=== PATIENT | female | born 1940 | race Caucasian/White ===

== ENCOUNTER → 2023-08-15 09:00 | Outpatient (REF) | payer OTHER, SELFPAY ==
[2023-08-15 10:37] LABS: ALT (SGPT) 18 U/L (0-35); AST (SGOT) 19 U/L (14-36); Albumin 4.3 g/dl (3.5-5.0); Alkaline Phosphatase 68 U/L (38-126); Blood Urea Nitrogen 18 mg/dl (7-17); Carbon Dioxide 30 mmol/L (22-30); Chloride 97 mmol/L (98-107); Glucose 146 mg/dl (70-99); HDL Cholesterol 50 mg/dl; LDL Cholesterol, Calculated 58 mg/dl; Sodium 136 mmol/L (135-145); Total Bilirubin 0.4 mg/dl (0.2-1.3); Total Cholesterol 131 mg/dl (50-199); Total Protein 6.8 g/dl (6.3-8.2); Triglyceride 117 mg/dl (10-149); Very Low Density Lipoprotein 23 mg/dl (0-30); eGFR > 60.00
[2023-08-15 11:04] LABS: Microalbumin, Random Urine 6.2 mg/dl (0.6-1.7)
== END ==
LOC: REG 09:00
PROVIDERS: ATTENDING PHYSICIAN Family Medicine
DX: E78.2 Mixed hyperlipidemia (principal); E11.40 Type 2 diabetes mellitus with diabetic neuropathy, unspecified; Z79.899 Other long term (current) drug therapy
CPT/HCPCS: 36415; 80053; 80061; 82043; 82570; 83036; 84443

== ENCOUNTER → 2024-02-06 08:46 | Outpatient (REF) | payer OTHER, SELFPAY ==
[2024-02-06 09:32] LABS: % Basophils 1.4 % (0-2); % Eosinophils 1.7 % (0-6); % Immature Granulocytes 0.3 % (0-0.5); % Lymphocytes 22.4 % (20.5-51.1); % Monocytes 8.7 % (1.7-9.3); % Neutrophils 65.5 % (42.2-75.2); Absolute Basophils 0.1 10^3/uL (0-0.2); Absolute Eosinophils 0.1 10^3/uL (0-0.7); Absolute Lymphocytes 1.3 10^3/uL (1.2-3.4); Absolute Monocytes 0.5 10^3/uL (0.1-0.6); Absolute Neutrophils 3.8 10^3/uL (1.4-6.5); Hematocrit 40.8 % (37.0-47.0); Hemoglobin 13.6 g/dL (12.0-16.0); Mean Corp Hgb Conc. 33.3 g/dL (33.0-37.0); Mean Corpuscular Hgb 29.8 pg (27.0-31.0); Mean Corpuscular Volume 89.5 fL (81.0-99.0); Nucleated Red Blood Cells % 0 %; Platelet Count 239 10^3/uL (130-400); Red Blood Cell Count 4.56 10^6/uL (4.20-5.40); Red Cell Dist. Width 12.4 % (11.5-14.5); White Blood Cell Count 5.8 10^3/uL (4.8-10.8)
[2024-02-06 10:03] LABS: Urine Albumin Trace (Neg - Trace); Urine Bilirubin Negative (Negative); Urine Character Clear (Clear); Urine Color Yellow; Urine Glucose Negative (Negative); Urine Ketone Negative (Negative); Urine Leukocyte Negative (Negative); Urine Nitrite Negative (Negative); Urine Occult Blood Negative (Negative); Urine Specific Gravity 1.015 (<1.030); Urine Urobilinogen Negative (Neg - 1+)
[2024-02-06 10:14] LABS: ALT (SGPT) 16 U/L (0-35); AST (SGOT) 22 U/L (14-36); Albumin 4.6 g/dl (3.5-5.0); Alkaline Phosphatase 69 U/L (38-126); Blood Urea Nitrogen 15 mg/dl (7-17); Calcium 10.1 mg/dl (8.4-10.2); Carbon Dioxide 28 mmol/L (22-30); Chloride 95 mmol/L (98-107); Glucose 147 mg/dl (70-99); HDL Cholesterol 65 mg/dl; LDL Cholesterol, Calculated 85 mg/dl; Potassium 4.8 mmol/L (3.5-5.1); Sodium 136 mmol/L (135-145); Total Bilirubin 0.6 mg/dl (0.2-1.3); Total Cholesterol 181 mg/dl (50-199); Total Protein 6.8 g/dl (6.3-8.2); Triglyceride 156 mg/dl (10-149); Very Low Density Lipoprotein 31 mg/dl (0-30); eGFR > 60.00
[2024-02-06 10:30] LABS: Glycohemoglobin (HgbA1c) 6.9 % (4.0-5.6)
== END ==
LOC: REG 08:46
PROVIDERS: ATTENDING PHYSICIAN Family Medicine
DX: E11.40 Type 2 diabetes mellitus with diabetic neuropathy, unspecified (principal); E78.2 Mixed hyperlipidemia; R53.83 Other fatigue; R35.0 Frequency of micturition
CPT/HCPCS: 36415; 80053; 80061; 81003; 83036; 85025

== ENCOUNTER → 2024-07-08 12:58 | Outpatient (REF) | payer OTHER, SELFPAY | LOC: RAD 12:58 | PROVIDERS: ATTENDING PHYSICIAN Nurse Practitioner Adult Health | DX: M54.42 Lumbago with sciatica, left side (principal); M53.3 Sacrococcygeal disorders, not elsewhere classified; W19.XXXA Unspecified fall, initial encounter | CPT/HCPCS: 72110; 72220 ==

== ENCOUNTER → 2024-07-27 09:13 | Outpatient (REF) | payer OTHER, SELFPAY ==
[2024-07-27 11:36] LABS: TSH Reflex To Free T4 3.84 uIU/ml (0.47-4.68)
== END ==
LOC: REG 09:13
PROVIDERS: ATTENDING PHYSICIAN Family Medicine
DX: Z13.29 Encounter for screening for other suspected endocrine disorder (principal)
CPT/HCPCS: 36415; 84443

== ENCOUNTER 2024-08-15 13:45 | Inpatient (IN) | payer OTHER, SELFPAY ==
[2024-08-14] VITALS (12 sets, daily range): BP systolic 96–211; BP diastolic 53–90; BMI 29.2; BMI 28.8
--- NOTE | 2024-08-14 16:24 | ED.GENMED ---
History of Present Illness
General
Chief Complaint: Weakness
Source: patient
Exam Limitations: none
Time Seen by Provider: 08/14/24 16:11
History of Present Illness
History of Present Illness:
83yoF with a history of hypertension, hyperlipidemia, and type 2 diabetes presenting for evaluation of speech disturbance and weakness. Patient has been feeling weird and dizzy for the past several days. She was shopping at [employer] about an
hour ago when she started to feel weird again. She walked out of the store and couldn't read her license plate. She states she was unable to read the letters and had trouble getting out her words. Her right arm felt numb and weak. She drove
herself to the urgent care where EMS was called. She is currently feeling much better and she denies any current dizziness, visual changes, weakness, or speech disturbance. She does state that she still feels unsteady. She takes a baby aspirin
daily. No prior history of CVA.
Past History
Past History
ED Past Medical History: Cancer (Breast), HTN, Hypercholesterolemia, NIDDM, Other (Neuropathy, Back pain, Shingles) and Other
ED Past Surgical History: Appendectomy, Orthopedic (Right thumb joint repair), Tonsilectomy and Other (Cataract surgery, Lumpectomy)
Social History
Tobacco: Non-smoker
Alcohol: None
Personal:
Living: alone
Employment: Retired
Family History
Family History: Negative Diabetes, Hypertension or CAD
Phy Exam
General Physical Exam
General Presentation: well appearing and no apparent distress
General age: appears stated age
General Skin: warm and dry
General Habitus: normal
General Mental: alert
ENT Exam
ENT Exam: normocephalic
Eye Exam
Eye Exam: PERRL, EOMI, conjunctiva normal and visual hewitt normal
Pulmonary Exam
Pulmonary Exam: no respiratory distress
Neurological Exam
Neurological Exam: alert, CN II-XII intact, no motor deficits, speech normal and other (CN 2-12 intact. PERRL. EOMs intact. Able to name objects and read sentences fluently on NIHSS cards. Negative drift x4. Sensation intact in all extremities.
Normal finger to nose and heel to tejada bilaterally.)
NIH Stroke Score
Level of Consciousness: 0 - Alert
LOC questions: 0-Answers both correctly
LOC Commands: 0-Performs both correctly
Best Gaze: 0-Normal
Visual Hewitt: 0=Normal, no visual loss
Facial palsy: 0=Normal, symmetrical
Motor - Right Arm: 0=No drift 10 seconds
Motor - Left Arm: 0=No drift 10 seconds
Motor - Right Le-No drift 5 seconds
Motor - Left Le-No drift 5 seconds
Limb Ataxia: 0-Absent
Sensation: 0-Normal
Best Language: 0-No aphasia
Dysarthria: 0-Normal
Extinction and Inattention: 0-No abnormality
Total Score:: 0
[place] Coma Scale
Eye Opening: Spontaneous
Verbal Response: Oriented
Motor Response: Obeys Commands
GCS Total Score: 15
Skin Exam
Skin Exam: normal color and warm/dry
Psychiatric Exam
Psychiatric Exam: normal mood/affect
Course
Orders/Labs/Results
Orders:
Orders
08/14/24 Breakfast
Regular
At Your Request: Limited Participation
08/14/24 16:23
CT Head W/o Iv Contrast Urgent
Comment:
Reason For Exam: transient R sided weakness, speech disturbance
Cardiac Monitoring- Treatment ONCE
08/14/24 16:25
Complete Blood Count/With Diff Urgent
Comprehensive Metabolic Panel Urgent
Troponin I Urgent
08/14/24 16:27
Electrocardiogram (*1) Urgent
Reason for Study: TIA/Stroke
EKG- Treatment ONCE
08/14/24 19:14
Aspirin Chewable [Low Strength Aspirin] 324 mg PO NOW STA
08/14/24 20:07
Admit/Transfer Patient As Directed
Co-Sign Provider:
Level of Care: Observation services
Assign to:: Telemetry
Physician / Group: Ed
Diagnosis: CVA / TIA
Reason for Telemetry: CVA/TIA
Date to Stop Telemetry: 08/17/24
Time to Stop Telemetry: 11:00
08/14/24 20:08
PRN Pain Medication Management As Directed
May give lesser potent ordered pain med per pt: Yes
preference::
Protocol:: Medication orders for pain may be administered in a
manner that supports deferring to patient preference
when the pt is:
- Requesting an ordered lesser potent pain medication.
Least to most potent pain medications are defined
as: acetaminophen < NSAID < tramadol < opioids
(morphine, oxycodone, hydromorphone).
- Requesting a lesser dose of the same medication IF
ORDERED.
- Requesting a less intrusive route of administration
if both routes are prescribed by the provider (PO <
IV).
08/14/24 20:09
Code Status As Directed
Resuscitation Status: Full Code
08/14/24 21:29
Acetaminophen [Tylenol] 650 mg PO Q4HPRN PRN
HydrALAZINE [Apresoline] 5 mg IV Q6HPRN PRN
08/14/24 21:29
Glycohemoglobin (HgbA1c) Routine
Activity As Directed
Activity Level: Ambulate
With Assistance
EKG with chest pain [ECG as needed] As Directed
ECG as needed for:: Chest Pain
I/O [Intake/ Output] As Directed
Frequency: Per unit guidelines
Neurological Checks As Directed
Frequency: q4h
Orthostatic Vital Signs As Directed
Orthostatic VS Frequency: BID
Pneumatic Compression Sleeves As Directed
Type: Knee high
Vital Signs As Directed
Frequency: Per unit guidelines
Weight As Directed
Frequency: Daily
Oxygen Therapy [O2 Therapy] [RESP] Routine
Titrate/Wean O2 to maintain O2 sat greater than (%): 94
Ot Eval And Treat Routine
PT Consult [Pt Eval And Treat] Routine
Activity Level: Ambulate
With Assistance
Speech Therapy Eval & Treat Routine
DX Deep Vein Thrombosis Video Routine
08/15/24 06:00
Basic Metabolic Panel IN AM
Cardiovascular Evaluation IN AM
Complete Blood Count/No Diff IN AM
MR Brain Without Contrast IN AM
Comment:
Reason For Exam: CVA / TIA
Recent pill cam endoscopy?: No
08/15/24 08:00
Aspirin Low Dose EC [Aspir Low (Enteric Coated)] 81 mg PO DAILY
Clopidogrel Bisulfate [Plavix] 75 mg PO DAILY
Ezetimibe [Zetia] 10 mg PO DAILY
Metoprolol [Lopressor] 25 mg PO BID
Pantoprazole [Protonix] 40 mg PO DAILY
08/15/24 18:00
Pravastatin Sodium [Pravachol] 40 mg PO QPM
08/17/24 11:00
DC Protocol for Telemetry ONCE
Abnormal Lab Results
08/14/24
16:25
Sodium 132 L mmol/L
(135-145)
Glucose 118 H mg/dl
(70-99)
08/14/24 16:25
08/14/24 16:25
Vital Signs
Initial and Last Documented VS:
Initial Vital Signs
Temp Pulse Resp BP Pulse Ox
97.7 F 70 18 192/90 100
08/14/24 16:05 08/14/24 16:05 08/14/24 16:05 08/14/24 16:05 08/14/24 16:05
Last Documented Vital Signs
Temp Pulse Resp BP Pulse Ox
97.7 F 67 19 183/66 99
08/14/24 16:05 08/14/24 19:50 08/14/24 16:15 08/14/24 19:30 08/14/24 19:50
MDM/Problems Addressed
Differential Diagnosis Includes:
83yoF here after an episode of R arm weakness and speech disturbance. Symptoms mostly resolved on arrival but she still does not feel quite right. She is hypertensive on arrival with blood pressure of 192/90. She is well-appearing in no distress.
No focal neurologic deficits noted. NIHSS 0. Differential diagnosis includes but is not limited to: TIA, CVA, complex migraine
Initial ED plan: Check cardiac labs, EKG, and CT head. Patient is not a TNK candidate given resolution of symptoms.
*Critical Care Note
Total Time (30-74mins, 75-104mins- exclusive of procedures): Not Applicable
Update Note
Update Note:
Labs overall unremarkable including a glucose of 118. CT head negative for acute findings. No recurrent right arm weakness on reassessment. She does state that her speech still feel slightly off although no obvious dysarthria or aphasia noted.
Patient able to ambulate independently but does report feeling somewhat unsteady with position changes. Will admit for further evaluation.
ED Attending Note
-
Portions of this chart may have been created with voice recognition software.� Occasional wrong word or��sound alike� substitutions may have occurred due to the inherent limitations of voice recognition software.
Discharge Plan
Departure
Patient Disposition: Admit
Date of Disposition: 08/14/24
Time of Disposition: 19:17
Presentation/result/management discussed w/ accepting MD/DO: Hospitalist
Discharge Problem:
TIA (transient ischemic attack)
Interventions
Interventions:
*Risk Screen - Suicide Last Done: 08/14/24 16:05
*General Assessment Last Done: 08/14/24 16:05
*Neglect/Abuse Screening Last Done: 08/14/24 16:05
*ED- Fall Risk Assessment Last Done: 08/14/24 16:05
*ED COVID-19 Vaccine History Last Done: 08/14/24 16:05
ED- Cardiac Assessment Last Done: 08/14/24 16:05
ED- Neurological Assessment Last Done: 08/14/24 19:40
ED- Pulmonary Assessment Last Done: 08/14/24 16:05
[2024-08-14 16:37] LABS: % Basophils 0.8 % (0-2); % Eosinophils 3.8 % (0-6); % Immature Granulocytes 0.3 % (0-0.5); % Monocytes 7.1 % (1.7-9.3); Absolute Basophils 0.1 10^3/uL (0-0.2); Absolute Eosinophils 0.2 10^3/uL (0-0.7); Absolute Lymphocytes 1.6 10^3/uL (1.2-3.4); Absolute Monocytes 0.5 10^3/uL (0.1-0.6); Absolute Neutrophils 3.9 10^3/uL (1.4-6.5); Hematocrit 38.7 % (37.0-47.0); Hemoglobin 13.4 g/dL (12.0-16.0); Mean Corp Hgb Conc. 34.6 g/dL (33.0-37.0); Mean Corpuscular Hgb 30.6 pg (27.0-31.0); Mean Corpuscular Volume 88.4 fL (81.0-99.0); Nucleated Red Blood Cells % 0 %; Platelet Count 215 10^3/uL (130-400); Red Blood Cell Count 4.38 10^6/uL (4.20-5.40); Red Cell Dist. Width 12.2 % (11.5-14.5); White Blood Cell Count 6.3 10^3/uL (4.8-10.8)
[2024-08-14 16:49] LABS: ALT (SGPT) 17 U/L (0-35); AST (SGOT) 24 U/L (14-36); Albumin 4.6 g/dl (3.5-5.0); Alkaline Phosphatase 62 U/L (38-126); Blood Urea Nitrogen 17 mg/dl (7-17); Calcium 9.6 mg/dl (8.4-10.2); Carbon Dioxide 25 mmol/L (22-30); Chloride 98 mmol/L (98-107); Estimated Creatinine Clearance 60 ml/min; Glucose 118 mg/dl (70-99); Potassium 4.6 mmol/L (3.5-5.1); Sodium 132 mmol/L (135-145); Total Bilirubin 0.7 mg/dl (0.2-1.3); Total Protein 6.9 g/dl (6.3-8.2); eGFR > 60.00
[2024-08-14 16:56] LABS: Troponin I < 0.012 ng/ml
[2024-08-14] MEDS: LOW STRENGTH ASPIRIN 324 MG PO (20:05)
--- NOTE | 2024-08-14 20:12 | HPS.HSE ---
Family Physician
-
Family Physician: Scar Rodriguez Jr.
Chief Complaint
-
Dizzy, Speech Difficulty
History of Present Illness
Patient is an 83y F with PMH significant for ASCVD, hypertension and diet-controlled DM-II who presents to ED complaining of feeling 'strange'. Patient states that she has been having some issues with poor balance for several months. She states
that she goes out to the store frequently just to walk around and work on her balance. She says that she has felt 'dizzy' for the past few days. Today she felt 'strange' this AM - though she cannot further describe these symptoms / sensations.
She went to the store to walk around as per usual and noted that she was more unsteady than usual. She noted dizziness, vision changes with described 'clouds' in her vision. She had difficulty reading print and could not pronounce / recognize
words even when seeing them clearly. She also noted difficulty speaking / word finding difficulty. She also states that her R hand / upper extremity felt numb and tingly.
She did not fall. No injury or trauma. Patient presented to an Urgent Care for evaluation and was transported to the ED via EMS.
In the ED, she does not feel back to her baseline - though she is able to speak without as much difficulty. The RUE symptoms have fully resolved.
Patient denies any prior h/o stroke.
She takes few Rx medications - but states that she takes numerous 'natural' remedies.
Medical History
Past Medical History
Past Medical History: Reports Other
Additional Past Medical History:
ASCVD
Hypertension
Diet-Controlled DM-II
Breast Cancer
GERD
Past Surgical History: Reports Other
Additional Past Surgical History:
Right Breast Biopsy / Lumpectomy
Appendectomy
T&A
PTCA (no stent)
Cataracts
Right Rotator Cuff Surgery
Social History
Tobacco: Non-smoker
Alcohol: None
Drug: None
Family History
Family History: Other (Mother: Cancer)
Allergies / Home Medications
Allergies reflects when Allergies were last updated in [facility].
Home Medications with original date entered in [facility]
Allergy/Medication List:
Allergies
Allergy/AdvReac Type Severity Reaction Status Date / Time
No Known Allergies Allergy Verified 11/24/19 18:53
Home Medications
aspirin 81 mg tablet,delayed release 81 mg PO DAILY 04/04/11
metoprolol tartrate 25 mg tablet 25 mg PO DAILY 12/24/12
sucralfate 1 gram tablet (Carafate) 1 g PO ACHS Gastrointestinal issue #40 tabs 05/23/23
ezetimibe 10 mg tablet (Zetia) 10 mg PO DAILY 08/14/24
pantoprazole 40 mg tablet,delayed release (Protonix) 40 mg PO BID Gastrointestinal issue 08/14/24
pravastatin 40 mg tablet 40 mg PO MOWEFR 08/14/24
Review of Systems
-
History Source: Patient
A 12 point ROS was completed and negative except as noted: Yes
Constitutional: Reports Fatigue; Denies Fever or Chills
EENT: Denies Sore Throat
Respiratory: Denies Cough or Trouble Breathing
Cardiac: Denies Chest Pain or Palpitations
Abdomen/GI: Denies Abdominal Pain, Nausea, Vomiting or Diarrhea
: Denies Dysuria, Frequency or Flank Pain
Musculoskeletal: Denies Joint Pain or Edema
Neurological: Reports Dizzy, Numbness and Other (Ataxia); Denies Headache
Psych: Denies Depression or Anxiety
Physical Exam
Vital Signs
Vital Signs
Temp Pulse Resp BP Pulse Ox
97.7 F 67 19 183/66 99
08/14/24 16:05 08/14/24 19:50 08/14/24 16:15 08/14/24 19:30 08/14/24 19:50
Physical Exam
General: Other (83y F in no acute distress.)
HEENT: Moist mucous membranes and PERRLA
Respiratory: Clear; No Wheezes, Rales or Rhonchi
Cardiac: S1/S2 and Regular Rhythm; No Murmur
GI: Soft, Non Tender, Non Distended and Normal Bowel Sounds
Musculoskeletal: No Clubbing, No Cyanosis and No Edema
Neuro: AO x 3, Nonfocal/grossly intact and Other (No focal weakness or sensory deficits. Able to read / follow commands / name objects / repeat sentences without difficulty. No evident ataxia.)
Laboratory Results
-
08/14/24 16:25
08/14/24 16:25
Laboratory Results
Total Bilirubin 0.7 mg/dl (0.2-1.3) 08/14/24 16:25
AST 24 U/L (14-36) 08/14/24 16:25
ALT 17 U/L (0-35) 08/14/24 16:25
Alkaline Phosphatase 62 U/L (38-126) 08/14/24 16:25
Troponin I < 0.012 ng/ml 08/14/24 16:25
Impression/Plan
-
A/P: Patient is an 83y F with PMH significant for hypertension, DM-II and ASCVD who presents to ED for evaluation of ataxia, vision changes and speech / reading difficulty.
CVA / TIA
ASCVD
- Observe overnight for further evaluation and treatment.
- Patient does not feel at baseline - but no significant deficits noted on exam at present.
- BP significantly elevated in the ED - question compliance with prescribed BP medications.
- Follow for serial Neuro changes.
- MRI in AM.
- Check lipid pane, A1C, etc.
- DAPT for now.
- Neuro evaluation in the AM.
- Allow permissive hypertension overnight - IV hydralazine if needed for SBP > 200.
Hypertension
- As noted above. Poorly controlled.
- Continue / resume usual home meds.
- Change metoprolol tartrate to appropriate BID dosing.
- Adjust regimen as needed for improved BP control.
Diet-Controlled DM-II
- Stable. Patient takes a 'natural supplement' for DM - but cannot recall the name.
- Check A1C.
GERD
- Stable. Hold Carafate. Change PPI to once daily.
DVT Prophylaxis: SCDs
Code Status: Full
[2024-08-14] MEDS: APRESOLINE 5 MG IV (22:19)
[2024-08-15] VITALS (7 sets, daily range): BP systolic 103–159; BP diastolic 45–72; PULSE 66–72; O2SAT 97–98; BMI 28.6
[2024-08-15 06:06] LABS: Hematocrit 36.7 % (37.0-47.0); Mean Corp Hgb Conc. 35.4 g/dL (33.0-37.0); Mean Corpuscular Hgb 31.5 pg (27.0-31.0); Mean Corpuscular Volume 88.9 fL (81.0-99.0); Platelet Count 216 10^3/uL (130-400); Red Blood Cell Count 4.13 10^6/uL (4.20-5.40); Red Cell Dist. Width 12.2 % (11.5-14.5); White Blood Cell Count 6.3 10^3/uL (4.8-10.8)
[2024-08-15 06:34] LABS: Blood Urea Nitrogen 15 mg/dl (7-17); Calcium 9.4 mg/dl (8.4-10.2); Carbon Dioxide 25 mmol/L (22-30); Chloride 102 mmol/L (98-107); Estimated Creatinine Clearance 59 ml/min; Glucose 104 mg/dl (70-99); HDL Cholesterol 42 mg/dl; LDL Cholesterol, Calculated 81 mg/dl; Sodium 134 mmol/L (135-145); Total Cholesterol 170 mg/dl (50-199); Triglyceride 237 mg/dl (10-149); Very Low Density Lipoprotein 47 mg/dl (0-30); eGFR > 60.00
--- NOTE | 2024-08-15 06:41 | W.PN.HOSP.TC ---
Today's Communication/Plan
-
see s/p
Assessment / Plan
Assessment / Plan
Physical Exam
General: no acute appears comfortable at this time
HEENT: Moist mucous membranes and PERRLA EOMI horizontal nystagmus
Respiratory: Clear; No Wheezes, Rales or Rhonchi
Cardiac: S1/S2 and Regular Rhythm; No Murmur
GI: Soft, Non Tender, Non Distended and Normal Bowel Sounds
Musculoskeletal: No Clubbing, No Cyanosis and No Edema
Neuro: AO x 3, Nonfocal/grossly intact, No focal weakness or sensory deficits.
A/P: Patient is an 83y F with PMH significant for hypertension, DM-II and ASCVD who presents to ED for evaluation of ataxia, vision changes and speech / reading difficulty.
TIA, CVA ruled out
ASCVD
- MRI Appreciated no acute abn's
- Neuro eval appreciated outpt neuropyschological testing recommended
- DAPT started empirically, discontinue plavix w/ CVA r/o, cont home ASA
- Lipid panel appreciated Hyperlipidemia cont home statin ezetimibe, counseled low cholesterol diet
- Speech eval appreciated appropriate for regular diet, concern for esophageal dysphagia, consider GI eval outpt vs inpt
- PT/OT appreciated home services
Hypertension
- Continue home metoprolol tartrate increased from daily to BID
- Adjust regimen as needed for improved BP control. Adjustments limited by severe orthostatic hypotension as below
Severe Symptomatic Orthostatic Hypotension
-Thigh TEDS started, consider Abd binder if not significantly improved
Diet-Controlled DM-II
- Diet controlled
- A1c appreciated 6.8 at goal for DM mgmt A1c<7
-No need for routine FS at this time
GERD
- Stable. Hold home Carafate. Changed home PPI to once daily.
DVT Prophylaxis: SCDs
Code Status: Full
I spent a total of 40 minutes with the patient or on the floor. More than 50% of this time involved counseling and coordination of care.
Anticipated Discharge: 24 - 48 hours
Subjective/Interval History
-
Date of Service: August 15, 2024
no acute distress resting comfortably in bed. reports overall improvement in symptoms. Though dizziness persists on sitting up/standing.
Objective Data
-
Labs:
Laboratory Results
08/15/24
04:45
WBC 6.3
Hgb 13.0
Hct 36.7 L
Plt Count 216
Sodium 134 L
Potassium 4.0
Chloride 102
Carbon Dioxide 25
BUN 15
Creatinine 0.7
Glucose 104 H
Calcium 9.4
Vital Signs:
Vital Signs
Temp Pulse Resp BP Pulse Ox
97.5 F 62 18 118/45 97
08/15/24 03:30 08/15/24 03:30 08/15/24 03:30 08/15/24 03:30 08/15/24 03:30
I&O
08/13/24 08/14/24 08/15/24
06:59 06:59 06:59
Intake Total 240 / 240
Balance 240 / 240
--- NOTE | 2024-08-15 08:21 | CON.NEURO ---
Neuro Assessment/Plan
Assessment
Abrupt onset of mental status change with sense of ataxia across last month, with patient having questionable history of foot pains.
Differential diagnosis includes progressive degenerative neurological disorder of unclear etiology, subacute stroke
Plan
check orthostatics
check MRI of brain
consider MRA or CTA of neurovascular system if evidence of prior ischemic injury
continue aspirin
Check blood work for potential metabolic abnormalities producing symptomatology
Rehabilitation evaluation and treatment
Outpatient neuropsychological testing
Will follow pending results
Consultation
Order
Date of Consultation: 08/15/24
Requesting Provider: Hospitalists
Reason for Consult: Dizziness
Subjective/Objective
Subjective Data
Date of Service: August 15, 2024
Right-handed
Began having difficulty with walking straight in 04/2024. Did fall on the ice at that time.
Began 1 month ago (06/2024) with recall and memory.
Two days ago had difficulty with reading especially around particular words, then difficulty with speech. Patient had sensation change and weakness in the right arm one day ago unclear time of onset which resolved after 1 hour. No leg issues. No
contralateral weakness.
Balance also became poor. Patient presented to [facility] who recommended patient present to this hospital's ED.
Did have difficulty with driving.
No prior episodes similar. No known modifying factors.
Objective Data
Vital Signs
Temp Pulse Resp BP Pulse Ox
36.4 C 62 18 118/45 97
08/15/24 03:30 08/15/24 03:30 08/15/24 03:30 08/15/24 03:30 08/15/24 03:30
Lab Results
08/15/24 04:45
08/15/24 04:45
Sodium 134 mmol/L (135-145) L 08/15/24 04:45
Potassium 4.0 mmol/L (3.5-5.1) 08/15/24 04:45
BUN 15 mg/dl (7-17) 08/15/24 04:45
Glucose 104 mg/dl (70-99) H 08/15/24 04:45
Calcium 9.4 mg/dl (8.4-10.2) 08/15/24 04:45
LDL Cholesterol, Calc 81 mg/dl 08/15/24 04:45
Patient Allergies
No Known Allergies Allergy (Verified 11/24/19 18:53)
Review of Systems
-
History Source: Patient
All other systems: Reviewed and negative
Constitutional: Weakness
EENT: Swallowing Difficulty (started 2 days ago); Negative Blurry Vision or Decreased Vision
Respiratory: Negative Trouble Breathing
Cardiac: Negative Chest Pain
Abdomen/GI: Negative Incontinence of Stool
Genitourinary: Negative Incontinence
Musculoskeletal: Neck Pain; Negative Back Pain
Neuro: Dizzy and Other (imbalance, thinking clarity); Negative Headache
Physical Exam
-
General: No Apparent Distress and Appears Stated Age
Eyes: OU Absent Papilledema, Round OU, [place] Conjunctivae and No Ptosis
HEENT: Anicteric and Moist Mucous Membranes
Neck: Full Range of Motion
Respiratory: No Dyspnea
Cardiac: No JVD
GI: Non-distended
Skin: Unremarkable
Extremities: No Clubbing, No Cyanosis and No Edema
Psych: Intact Judgement/Insight
Extended Neurological Exam
Mood & Affect: Negative Affect Unremarkable (somatic)
Attention Span & Concentration: Awake, Alert, Interactive and No Difficulty with 2 Step Request
Memory: Unremarkable
Tremor: Hand Tremor Absent and Head Tremor Absent
Speech: Quality Unremarkable and Quantity Unremarkable
Cranial Nerve II: Left Eye: Pupillary Reactivity Unremarkable, Pupillary Size Unremarkable and Visual Torres Intact
Cranial Nerve II: Right Eye: Pupillary Reactivity Unremarkable, Pupillary Size Unremarkable and Visual Torres Intact
Cranial Nerves III, IV, : Extraocular Movement: Extraocular Movement Full in all Directions
Cranial Nerve VII: Facial Symmetry: Normal Facial Symmetry
Cranial Nerve VIII: Hearing: Unremarkable Hearing to Normal Conversational Volume
Cranial Nerves IX, X: Palate Movement: Palate Elevation Symmetric
Cranial Nerve XI: Shoulder Shrug: Unremarkable
Cranial Nerve XII: Tongue Protusion: Midline
Muscle Strength, Overall: Full Throughout
Muscle Bulk & Tone: Bulk Unremarkable and Tone Unremarkable
Pronator Drift: No Drift in Upper Extremities
Deep Tendon Reflexes: Unremarkable Throughout
Touch Sensation: Unremarkable
Coordination: [id number] Testing Unremarkable
Babinski Sign: Absent Bilaterally
Gait & Station: Up from Seated Without Problem
Data Reviewed
-
CT Head: Report Reviewed
MRI Head: Report Reviewed and Image Reviewed
Labs: Report Reviewed
Lipid Profile: Report Reviewed
Reviewed with: Nurse and Patient
Old Records: Summarized
Medications
-
Active Medications
Generic Name Dose Route Start Last Admin
Trade Name Freq PRN Reason Stop Dose Admin
Acetaminophen 650 mg 08/14/24 21:29
Acetaminophen 325 Mg Tablet PO 09/11/24 21:28
Q4HPRN PRN
Mild Pain / Temp > 101
Aspirin 81 mg 08/15/24 08:00
Aspirin 81 Mg (Enteric Coated) Tablet PO 09/12/24 07:59
DAILY DEDE
Clopidogrel Bisulfate 75 mg 08/15/24 08:00
Clopidogrel 75 Mg Tablet PO 09/12/24 07:59
DAILY DEDE
Ezetimibe 10 mg 08/15/24 08:00
Ezetimibe (Zetia) 10 Mg Tablet PO 09/12/24 07:59
DAILY DEDE
Hydralazine HCl 5 mg 08/14/24 21:29 08/14/24 22:19
Hydralazine 20 Mg/Ml Vial IV 09/11/24 21:28 5 mg
Q6HPRN PRN Administration
SBP > 200
Metoprolol Tartrate 25 mg 08/15/24 08:00
Metoprolol 25 Mg Regular Release Tablet PO 09/12/24 07:59
BID DEDE
Pantoprazole Sodium 40 mg 08/15/24 08:00
Pantoprazole 40 Mg Delayed Release Tablet PO 09/12/24 07:59
DAILY DEDE
Pravastatin Sodium 40 mg 08/15/24 18:00
Pravastatin 40 Mg Tablet PO 09/12/24 17:59
QPM DEDE
Home Medications
�Medication �Instructions �Recorded
aspirin 81 mg tablet,delayed 81 mg PO DAILY Blood Clot 04/04/11
release Prevention/Tx
metoprolol tartrate 25 mg tablet 25 mg PO DAILY Blood Pressure 12/24/12
sucralfate 1 gram tablet (Carafate) 1 g PO ACHS Gastrointestinal issue 05/23/23
#40 tabs
ezetimibe 10 mg tablet (Zetia) 10 mg PO DAILY High Cholesterol 08/14/24
pantoprazole 40 mg tablet,delayed 40 mg PO BID Gastrointestinal issue 08/14/24
release (Protonix)
pravastatin 40 mg tablet 40 mg PO MOWEFR High Cholesterol 08/14/24
Past History
Past History
ED Past Medical History: Cancer (Breast), GERD, HTN, Hypercholesterolemia, NIDDM and Other (Neuropathy, Back pain, Shingles)
ED Past Surgical History: Appendectomy, Orthopedic (Right thumb joint repair), Tonsilectomy and Other (Cataract surgery, Lumpectomy)
Social History
Tobacco: Non-smoker
Alcohol: None
Personal:
Living: alone
Employment: Retired
Family History
Family History: Negative Diabetes, Hypertension or CAD
[2024-08-15] MEDS: LOPRESSOR 25 MG PO ×2 (08:52→20:10)
[2024-08-15] MEDS: ZETIA 10 MG PO (08:52)
[2024-08-15] MEDS: ASPIR LOW (ENTERIC COATED) 81 MG PO (08:52)
[2024-08-15] MEDS: PLAVIX 75 MG PO (08:52)
[2024-08-15] MEDS: PROTONIX 40 MG PO (08:53)
--- NOTE | 2024-08-15 09:32 | PTOTSP ---
SPEECH THERAPY SPEECH/LANGUAGE/SWALLOW EVALUATION:
Patient exhibits grossly functional oropharyngeal swallow at this time. Patient with history of suspected esophageal dysphagia given complaints of globus sensation and sternal retention, and retained contrast noted during prior VSE 06/12/2023.
Recommend continue baseline diet as recommended from VSE (Regular texture solids, thin liquids; Avoid overly dry/dense foods). Medications whole with liquid as best tolerated.
Aspiration and Reflux Precautions: maintain 90 degrees upright sitting position when
eating or drinking, use dry swallow(s) after each regular swallow, small bites
of food, eat slowly and chew food thoroughly, alternate sip of liquid after
every few bites of food to assist with esophageal clearance, eat smaller, more
frequent meals, rest breaks during meals (and stand up as needed), moisten
foods with gravies/sauces, jellies/jams, etc. and remain upright for at least
30 minutes after meals.
Patient remains at risk for oropharyngeal dysphagia/aspiration given possible acute CVA. Recommend ST to follow, assess diet tolerance, determine indication for repeat instrumental assessment of swallowing, and provide diagnostic swallow therapy as
appropriate. Recommend GI consult to further assess esophageal dysphagia, as patient denied receiving GI services despite recommendation for follow up after VSE.
Patient exhibits mild expressive/receptive language impairments and mild-moderate cognitive communication impairments. Deficits noted in the following areas: STM, Processing speed, Attention, Word finding, Abstraction, Executive functioning,
orientation. MOCA version 8.1 was administered. Patient achieved a score of 17/30, indicating below normal level (greater than or equal to 26/30). Subscores as follows: Visuospatial/Executive functionin/5. Namin/3. Attention: 4/6. Language:
2/3. Abstraction: 1/2. Delayed Recall: 0/5. Orientation: 4/6. Patient endorsed mild STM/word finding impairments at baseline. Recommend ST services at the acute care level and continued upon discharge pending MRI results.
RECOMMEND:
1) Regular texture solids, thin liquids; Avoid overly dry/dense foods
2) Medications whole with liquid as best tolerated
3) Aspiration and Reflux Precautions: maintain 90 degrees upright sitting position when
eating or drinking, use dry swallow(s) after each regular swallow, small bites
of food, eat slowly and chew food thoroughly, alternate sip of liquid after
every few bites of food to assist with esophageal clearance, eat smaller, more
frequent meals, rest breaks during meals (and stand up as needed), moisten
foods with gravies/sauces, jellies/jams, etc. and remain upright for at least
30 minutes after meals
4) Oral care 3x/day
5) Consider GI consult to assess esophageal dysphagia
6) ST to follow at the acute care level for swallow and language/cognitive communication therapy
[2024-08-15 12:34] LABS: Erythrocyte Sed Rate 2 mm/hour (0-20)
[2024-08-15 12:47] LABS: TSH Reflex To Free T4 5.64 uIU/ml (0.47-4.68)
[2024-08-15 12:51] LABS: Ferritin 70.1 ng/ml (11.1-264.0)
[2024-08-15 12:58] LABS: Glycohemoglobin (HgbA1c) 6.8 % (4.0-5.6)
[2024-08-15 13:12] LABS: Free T4 0.99 ng/dl (0.78-2.19)
[2024-08-15 13:22] LABS: Folate 15.3 ng/ml (2.76-20); Vitamin B12 350 pg/ml (239-931)
--- NOTE | 2024-08-15 15:16 | PTCARENOTE ---
Per Dr Rodriguez and Dr Manzo pt may come of tele monitoring.
[2024-08-15] MEDS: TYLENOL 650 MG PO (16:26)
[2024-08-15] MEDS: PRAVACHOL 40 MG PO (17:30)
[2024-08-16 06:00] VITALS: BMI 28.4
[2024-08-16 07:31] VITALS: BP 129/53
[2024-08-16] MEDS: PROTONIX 40 MG PO (08:32)
[2024-08-16] MEDS: ASPIR LOW (ENTERIC COATED) 81 MG PO (08:33)
[2024-08-16] MEDS: LOPRESSOR 25 MG PO ×2 (08:33→20:11)
[2024-08-16] MEDS: ZETIA 10 MG PO (08:33)
[2024-08-16 12:01] VITALS: BP 126/64; BP 129/53; BP 154/70; PULSE 57; PULSE 62
--- NOTE | 2024-08-16 14:13 | CON.GI ---
Addendum entered and electronically signed by Lluvia Almeida MD 08/16/24 17:41:
I saw and examined the patient.
The WELT STITCH CLEANER or PA's note was reviewed and I agree with the note.
Comment: 83-year-old female with history of breast cancer status postlumpectomy, NIDDM, hypertension presenting with word finding difficulties with concern for TIA but imaging of the brain negative. GI consult was called in for difficulties with
swallowing solids, liquids and pills since the last month without any associated weight loss. She reports that prior to that she was doing relatively well but she also has been having issues with her memory. Denies any heartburn but some pain with
swallowing and also some discomfort in the chest after swallowing. Does not take any PPI. No regular NSAID use. She had an EGD in 2022 for epigastric pain and dysphagia- dilation of Schatzki's ring by Dr. Fonseca.
No anemia noted. Colonoscopy in 2016 unremarkable.
-Dysphagia to solids, liquids and pills without associated weight loss.
Previous history of Schatzki's ring dilation.
Rule out Schatzki's ring versus esophageal motility disorder
Will start with esophagram with a barium tablet and upper GI study to evaluate.
Continue PPI.
She did get a dose of Plavix this admission but currently not on it.
Will follow-up on above testing
Original Note:
Consultation
-
Date/Time Consultation Requested: 08/16/24 1300
Date/Time Consultation Performed: 08/16/24 1415
Requesting Provider: Connor Esparza DO
Performing Provider: VALERIO Ram, Lluvia Almeida MD
Reason for Consultation: epigastric/chest pain
Medical History
Chief Complaint / HPI
Chief Complaint: epigastric/chest pain
History of Present Illness:
Pt is a 83yo with hx breast CA with prior lumpectomy no chemo or radiation, NIDDM, GERD, HH, HTN, ASCVD, prior PTCA, appe, cataract surgery with onset of dizziness and visual changes with hand numbness, word finding difficulty with concern for TIA
and noted orthostasis. She completed HCT and MRI brain. She now with complaints of chest and epigastric pain with eating. Hx EGD 12/2022 with mild schatzki's ring with dilation, 2 cm HH, erythema in stomach, erythematous duodenopathy, duodenal
erosions with neg bx. No prior esophagram or UTI in past.
At this time pt admits to worsening dysphagia. He memory is not great and did not recall symptoms prior to dilation in past. She did complete VSE in May with function larygeal swallow but hold up of contrast in esophagus. She is on daily
ASA and ? occasional Advil use. Pt also did not recall meds but listed on PPI BID and carafate prior to admission. She currently admits to daily symptoms. She will have feeling of food sticking in upper esophagus, lower esophagus and stomach with
pain with food sticking. Will be liquid and solids. She will occasionally have regurgitation of food. She will use pepto bismol with some improvement. She also admits to constipation with use of fiber supplement. She denies GERD ,wt loss,
abdominal pain, diarrhea, blood or black in stools. last colonoscopy stable in 2016.
Past Medical History
Past Medical History: Cancer (breast CA), GERD, HTN, NIDDM and Other (ASCVD)
Past Surgical History: Appendectomy, Cardiac (PTCA), Gynecological (breast biopsy/lumpectomy), Orthopedic (right rotator cuff surgery ), Tonsilectomy (T&A) and Other (cataracts)
Social History
Tobacco: Non-Smoker
Alcohol: None
Drug: None
Personal:
Living: With Family (son in law )
Employment: Retired
Family History
Family History: Other (no family hx GI issues )
Allergies / Home Medications
Allergy/AdvReac Type Severity Reaction Status Date / Time
No Known Allergies Allergy Verified 11/24/19 18:53
�Medication �Instructions �Recorded
aspirin 81 mg tablet,delayed 81 mg PO DAILY Blood Clot 04/04/11
release Prevention/Tx
metoprolol tartrate 25 mg tablet 25 mg PO DAILY Blood Pressure 12/24/12
sucralfate 1 gram tablet (Carafate) 1 g PO ACHS Gastrointestinal issue 05/23/23
#40 tabs
ezetimibe 10 mg tablet (Zetia) 10 mg PO DAILY High Cholesterol 08/14/24
pantoprazole 40 mg tablet,delayed 40 mg PO BID Gastrointestinal issue 08/14/24
release (Protonix)
pravastatin 40 mg tablet 40 mg PO MOWEFR High Cholesterol 08/14/24
Review of Systems
-
Unable to obtain full review of systems at this time due to: Other (pt forgetful at times )
History Source: Patient
Constitutional: Reports No Symptoms
EENT: Reports Other (odynophagia, dysphagia -solids and liquids )
Respiratory: Reports Trouble Breathing (at times with swallowing issues )
Cardiac: Reports Chest Pain
Abdomen/GI: Reports Abdominal Pain, Vomiting (regurgitation) and Constipated
: Reports No Symptoms
Musculoskeletal: Reports No Symptoms
Skin: Reports No Symptoms
Neurological: Reports Dizzy, Weakness and Numbness (arms)
Endocrine: Reports No Symptoms
Hematologic/Lymphatic: Reports No Symptoms
Vital Signs
Temp Pulse Resp BP Pulse Ox
97.7 F 70 18 129/53 99
08/16/24 07:31 08/16/24 08:33 08/16/24 07:31 08/16/24 08:33 08/16/24 08:10
Physical Exam
Exam
General: Well Developed, Well Nourished and No Apparent Distress
HEENT: Normocephalic and Anicteric
Respiratory: Clear
Cardiac: Regular Rhythm
GI: Soft, Non Tender and Non Distended
Musculoskeletal: No Clubbing and No Cyanosis
Skin: Warm and Dry
Neuro: Awake, Alert and Other (forgetful to some questions )
Psych: Calm
Results
WBC 6.3 10^3/uL (4.8-10.8) 08/15/24 04:45
Hgb 13.0 g/dL (12.0-16.0) 08/15/24 04:45
Hct 36.7 % (37.0-47.0) L 08/15/24 04:45
MCV 88.9 fL (81.0-99.0) 08/15/24 04:45
Plt Count 216 10^3/uL (130-400) 08/15/24 04:45
Absolute Neuts (auto) 3.9 10^3/uL (1.4-6.5) 08/14/24 16:25
Sodium 134 mmol/L (135-145) L 08/15/24 04:45
Potassium 4.0 mmol/L (3.5-5.1) 08/15/24 04:45
Chloride 102 mmol/L (98-107) 08/15/24 04:45
Carbon Dioxide 25 mmol/L (22-30) 08/15/24 04:45
BUN 15 mg/dl (7-17) 08/15/24 04:45
Creatinine 0.7 mg/dL (0.6-1.0) 08/15/24 04:45
Calcium 9.4 mg/dl (8.4-10.2) 08/15/24 04:45
Total Bilirubin 0.7 mg/dl (0.2-1.3) 08/14/24 16:25
AST 24 U/L (14-36) 08/14/24 16:25
ALT 17 U/L (0-35) 08/14/24 16:25
Alkaline Phosphatase 62 U/L (38-126) 08/14/24 16:25
Diagnostic Image Results:
08/15/24 MRI brain
No acute intracranial abnormality noted.
08/14/24 CT Head W/o Iv Contrast
No acute intracranial abnormality.
Prior GI Procedures:
12/2022 EGD [place] Normal esophagus.
- Mild Schatzki ring. Dilated.
- 2 cm hiatal hernia.
- Erythematous mucosa in the stomach. Biopsied.
- Erythematous duodenopathy.
- Duodenal erosion without bleeding.
- Normal second portion of the duodenum. Biopsied.
- Biopsies were taken with a cold forceps for
evaluation of eosinophilic esophagitis.
bx neg
2017 colonoscopy tre[facility]ño - The entire examined colon is normal.
- No specimens collected.
Assessment / Plan
-
Pt is a 83yo with hx breast CA with prior lumpectomy no chemo or radiation, NIDDM, GERD, HH, HTN, ASCVD, prior PTCA, appe, cataract surgery with onset of dizziness and visual changes with hand numbness, word finding difficulty with concern for TIA
and noted orthostasis. She completed HCT and MRI brain. She now with complaints of chest and epigastric pain with eating. Hx EGD 12/2022 with mild schatzki's ring with dilation, 2 cm HH, erythema in stomach, erythematous duodenopathy, duodenal
erosions with neg bx. No prior esophagram or UTI in past.
-odynophagia/dysphagia with solids and liquids
-abnormal swallowing evaluation with concern for esophageal dysphagia
-hx schatzki's ring with HH and prior dilation
-concern for TIA on admission with word finding, tingling, dizziness
-orthostasis
other med problems:
-breast CA with prior lumpectomy no chemo or radiation
-NIDDM
-GERD
-ASCVD with prior PTCA
-appe
PLAN:
etiology of dysphagia/odynophagia related to esophageal dysmotility vs other
plan for Esophagram with barium tablet and UGI in am
strick NPO in AM
cont work up per neurology for neurologic symptoms
s/p speech eval as noted
cont PPI
t/c restart Carafate after UGI reviewed
Pt was given Plavix x 1 dose 08/15 on admission with TIA symptoms now off if EGD needed
-
-
Thank you for consultation and allowing me to participate in the patient's care. Please call the rn documentation specialist GI physician during the after hours with any questions or concerns.
[2024-08-16 14:31] VITALS: BP 144/72; PULSE 67
--- NOTE | 2024-08-16 14:48 | W.PN.HOSP.TC ---
Today's Communication/Plan
-
Assessment / Plan
Assessment / Plan
Physical Exam
General: no acute appears comfortable at this time
HEENT: Moist mucous membranes and PERRLA EOMI horizontal nystagmus
Respiratory: Clear; No Wheezes, Rales or Rhonchi
Cardiac: S1/S2 and Regular Rhythm; No Murmur
GI: Soft, Non Tender, Non Distended and Normal Bowel Sounds
Musculoskeletal: No Clubbing, No Cyanosis and No Edema
Neuro: AO x 3, Nonfocal/grossly intact, No focal weakness or sensory deficits.
A/P: Patient is an 83y F with PMH significant for hypertension, DM-II and ASCVD who presents to ED for evaluation of ataxia, vision changes and speech / reading difficulty.
Orthostatic hypotension:
-Improved, continue SUMA stockings, no longer orthostatic
-TIA, CVA ruled out
- MRI Appreciated no acute abn's
- Neuro eval appreciated outpt neuropyschological testing recommended
- DAPT started empirically, discontinue plavix w/ CVA r/o, cont home ASA
- Lipid panel appreciated Hyperlipidemia cont home statin ezetimibe, counseled low cholesterol diet
- Speech eval appreciated appropriate for regular diet, concern for esophageal dysphagia, GI evaluation pending
- PT/OT recommended home services
Esophageal dysphagia with odynophagia:
-Appreciate PAPER TUBE MACHINE OPERATOR input, small bites, eat slowly
-Awaiting GI evaluation
-Continue PPI
Hypertension
- Continue home metoprolol tartrate increased from daily to BID
- Adjust regimen as needed for improved BP control. Adjustments limited by severe orthostatic hypotension as below
Severe Symptomatic Orthostatic Hypotension
-Thigh TEDS started, consider Abd binder if not significantly improved
Diet-Controlled DM-II
- Diet controlled
- A1c appreciated 6.8 at goal for DM mgmt A1c<7
-No need for routine FS at this time
GERD
- Stable. Hold home Carafate. Changed home PPI to once daily.
DVT Prophylaxis: SCDs
Code Status: Full
I spent a total of 40 minutes with the patient or on the floor. More than 50% of this time involved counseling and coordination of care.
Anticipated Discharge: 24 - 48 hours
Subjective/Interval History
-
Date of Service: August 16, 2024
Patient was seen and examined at bedside this morning. Improved dizziness. Complains of ongoing pain with swallowing solids and liquids
Objective Data
-
Vital Signs:
Vital Signs
Temp Pulse Resp BP Pulse Ox
97.7 F 70 18 129/53 99
08/16/24 07:31 08/16/24 08:33 08/16/24 07:31 08/16/24 08:33 08/16/24 08:10
I&O
08/15/24 08/16/24 08/17/24
06:59 06:59 06:59
Intake Total 240 / 240 480 / 480
Balance 240 / 240 480 / 480
Review of Systems
-
History Source: Patient
All other systems: Reviewed and negative
Abdomen/GI: Reports Other (Odynophagia)
Physical Exam
-
General: No Apparent Distress
[2024-08-16 15:04] VITALS: BP 146/67
--- NOTE | 2024-08-16 15:53 | VNURNOTE ---
Home health liaison met with patient to discuss [facility] services, visit scheduling/frequency, homebound status and pet policy. Patient understands home visits will be 1-2 times a week to assess and teach medical management. Patient aware a visiting
nurse will contact her for start of care within 1-2 days after discharge from . [facility] Referral completed in care port.
--- NOTE | 2024-08-16 17:15 | CM ---
Alert awake oriented patient who lives with her Medhat who lives in a 2 story home with ramp to enter bed bathroom on first floor. She is independent in driving and in all activities of daily living.Offered VN she requested [facility] Liaison VN
aware..
No adaptive devices
Never had VN/SNF
Pharmacy [facility]
PCP Dr Rodriguez
PLAN Home with [facility]
[2024-08-16] MEDS: PRAVACHOL 40 MG PO (17:37)
[2024-08-16 23:51] VITALS: BP 113/65
[2024-08-16 23:52] VITALS: BP 113/65; BP 128/63; BP 94/50; PULSE 51; PULSE 56; PULSE 70
[2024-08-17 05:10] VITALS: BMI 28.4
[2024-08-17 07:35] VITALS: BP 143/67
[2024-08-17] MEDS: PROTONIX PO (08:30)
[2024-08-17] MEDS: ASPIR LOW (ENTERIC COATED) PO (08:30)
[2024-08-17] MEDS: LOPRESSOR PO (08:30)
[2024-08-17] MEDS: ZETIA PO (08:30)
[2024-08-17] MEDS: NSS 500 IV (08:35)
[2024-08-17 11:00] VITALS: BP 153/81
[2024-08-17 11:06] LABS: Glucose - Point of Care 159 mg/dl (70-99)
--- NOTE | 2024-08-17 11:23 | RR ---
1100 Pt complained of numbness an tingling in left side of face and left arm. A Rapid Response and Stroke Alert was called on this patient, please see Rapid Response form.
--- NOTE | 2024-08-17 11:25 | PTCARENOTE ---
1100 Pt complained of numbness an tingling in Left face and left arm. See Rapid Response Note. On onset of symptoms patients -B/P 153/81 HR-75 Temp 09.0, Resp-18, O2 sat-99% RA. EKG- NSR with first degree AV Block. BS 159. Pt to CT with ICU Nurses.
--- NOTE | 2024-08-17 11:26 | W.PN.NEURO.1 ---
Today's Communication / Plan
-
.
Subjective/Objective
Subjective Data
Date of Service: August 17, 2024
Reason for consultation: stroke alert
Called in: 11:04 AM
Neurology follow-up note.
HPI: This is an 83-year-old right-handed woman who presented to [facility] on 08/14/2024 with multiple sensory (right arm tingling), cognitive and visual symptoms.
EMS VS: 217/100, 78, FS: 99.
Stroke alert was activated due to new onset of sensory symptoms. According to the patient she developed an acute left-sided facial numbness and tingling in the left arm, which began with shaking in the hand and progressed up the arm and to the face
around 11 AM. The symptoms started following IV administration. The patient described the numbness as 'almost not numb, but it switches', and did not notice any facial twitching. The numbness and tingling have decreased in intensity, particularly in
the hand. The patient denied any issues with the right leg, and no facial weakness was observed. The patient reported feeling shaky, but not much.
VS : 153/81, 75, afebrile. Fingerstick�159.
EKG: NSR
CHart review: MOCA(08/15/2024) 17/30.
Brain MRI without jose de jesus (08/15/2024)�no acute infarcts, mild atrophy
Labs: Vitamin B12�350, normal free T4, HbA1C 6.8, LDL 81
PDMP: none
PMH: ASCVD, DLP, DM, breast CA
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
SH: Lives with son-in-law, non-smoker, no history of excessive alcohol use
FH: Mother�cancer
All:NKDA
ROS: Constitutional: Negative. Negative for chills, fever and unexpected weight change.
Allergic/Immunologic: Negative. Negative for immunocompromised state.
Neurological:Positive numbness, tremor
General: anxious, tremulous
NIH Stroke Scale
1A Level of Consciousness: 0/3
1B LOC Questions: 0/2
1C LOC Commands: 0/2
2 Best Gaze: 0/2
3 Visual: 0/3
4 Facial Palsy: 0/3
5A Motor Arm LEFT: 0/4
5B Motor Arm RIGHT: 0/4
6A Motor Leg LEFT: 0/4
6B Motor Leg RIGHT: 0/4
7 Limb Ataxia: 0/2
8 Sensory: 1/2
9 Best Language: 0/3
10 Dysarthria: 0/2
11 Extinction/Inattention: 0/2
Total NIHSS: 0
Assessment and Plan:
I. Left face and arm sensory symptoms. Not a candidate for IV TNK due to low NIH score. Suspect JOSE DE JESUS
II. Encephalopathy (vascular, neurodegenerative?)
III. HTN
-Please obtain carotid Doppler ultrasound
-Outpatient NCS/EMG of an UE/LE
-Outpatient neuropsychological evaluation
-Continue aspirin 81 mg once a day
-May consider starting hydroxyzine 25 mg TID PRN
-Will follow
I personally reviewed all radiology and labs along with past medical records pertinent to current medical problems. Total time spent in patient care is 45 minutes.
Thank you for allowing us to participate in the care of this patient. We will continue to follow. Please do not hesitate to contact us with any questions or concerns.
Objective Data
Vital Signs
Temp Pulse Resp BP Pulse Ox
36.7 C 75 18 153/81 99
08/17/24 11:00 08/17/24 11:00 08/17/24 11:00 08/17/24 11:00 08/17/24 11:00
Lab Results
08/15/24 04:45
08/15/24 04:45
Sodium 134 mmol/L (135-145) L 08/15/24 04:45
Potassium 4.0 mmol/L (3.5-5.1) 08/15/24 04:45
BUN 15 mg/dl (7-17) 08/15/24 04:45
Glucose 104 mg/dl (70-99) H 08/15/24 04:45
Calcium 9.4 mg/dl (8.4-10.2) 08/15/24 04:45
LDL Cholesterol, Calc 81 mg/dl 08/15/24 04:45
Vitamin B12 350 pg/ml (018-625) 08/15/24 04:45
Patient Allergies
No Known Allergies Allergy (Verified 11/24/19 18:53)
Vital Signs and Labs
-
Vital Signs and Labs:
Vital Signs
Temp Pulse Resp BP Pulse Ox
36.7 C 75 18 153/81 99
08/17/24 11:00 08/17/24 11:00 08/17/24 11:00 08/17/24 11:00 08/17/24 11:00
Lab Results
08/15/24 04:45
08/15/24 04:45
Sodium 134 mmol/L (135-145) L 08/15/24 04:45
Potassium 4.0 mmol/L (3.5-5.1) 08/15/24 04:45
BUN 15 mg/dl (7-17) 08/15/24 04:45
Glucose 104 mg/dl (70-99) H 08/15/24 04:45
Calcium 9.4 mg/dl (8.4-10.2) 08/15/24 04:45
LDL Cholesterol, Calc 81 mg/dl 08/15/24 04:45
Vitamin B12 350 pg/ml (243-874) 08/15/24 04:45
Medications
-
Medications:
Generic Name Dose Route Start Last Admin
Trade Name Freq PRN Reason Stop Dose Admin
Acetaminophen 650 mg 08/14/24 21:29 08/15/24 16:26
Acetaminophen 325 Mg Tablet PO 09/11/24 21:28 650 mg
Q4HPRN PRN Administration
Mild Pain / Temp > 101
Aspirin 81 mg 08/15/24 08:00 08/17/24 08:30
Aspirin 81 Mg (Enteric Coated) Tablet PO 09/12/24 07:59 Not Given
DAILY DEDE
Ezetimibe 10 mg 08/15/24 08:00 08/17/24 08:30
Ezetimibe (Zetia) 10 Mg Tablet PO 09/12/24 07:59 Not Given
DAILY DEDE
Hydralazine HCl 5 mg 08/14/24 21:29 08/14/24 22:19
Hydralazine 20 Mg/Ml Vial IV 09/11/24 21:28 5 mg
Q6HPRN PRN Administration
SBP > 200
Sodium Chloride 500 mls @ 75 mls/hr 08/17/24 08:00 08/17/24 08:35
Nss IV 08/17/24 14:39 500 mls
.Q6H40M DEDE Administration
Metoprolol Tartrate 25 mg 08/15/24 08:00 08/17/24 08:30
Metoprolol 25 Mg Regular Release Tablet PO 09/12/24 07:59 Not Given
BID DEDE
Pantoprazole Sodium 40 mg 08/15/24 08:00 08/17/24 08:30
Pantoprazole 40 Mg Delayed Release Tablet PO 09/12/24 07:59 Not Given
DAILY DEDE
Pravastatin Sodium 40 mg 08/15/24 18:00 08/16/24 17:37
Pravastatin 40 Mg Tablet PO 09/12/24 17:59 40 mg
QPM DEDE Administration
Home Medications
-
Home Medications
aspirin 81 mg tablet,delayed release 81 mg PO DAILY Blood Clot Prevention/Tx 04/04/11
metoprolol tartrate 25 mg tablet 25 mg PO DAILY Blood Pressure 12/24/12
sucralfate 1 gram tablet (Carafate) 1 g PO ACHS Gastrointestinal issue #40 tabs 05/23/23
ezetimibe 10 mg tablet (Zetia) 10 mg PO DAILY High Cholesterol 08/14/24
pantoprazole 40 mg tablet,delayed release (Protonix) 40 mg PO BID Gastrointestinal issue 08/14/24
pravastatin 40 mg tablet 40 mg PO MOWEFR High Cholesterol 08/14/24
--- NOTE | 2024-08-17 11:36 | CM ---
Pt had stroke rapid this am .
Will need PT OT evals when medically ready for dc planning .
Prior to today plan was home with [facility].
PLAN Will depend on hospital course of care
[2024-08-17 11:44] LABS: Troponin I < 0.012 ng/ml
[2024-08-17 12:44] VITALS: BP 104/71; PULSE 64; O2SAT 98
--- NOTE | 2024-08-17 13:44 | W.PN.GI.CBS2 ---
Addendum entered and electronically signed by Noel Velasco MD 08/17/24 18:14:
I saw and examined the patient.
The LINE COOK or PA's note was reviewed and I agree with the note.
Comment: Salud is an 83-year-old female known to me on from the outpatient setting where I dilated a Schatzki ring. I had recommended a repeat endoscopy but patient was unable to have done due to issues with her co-pay. We ended up getting a
esophageal manometry and pH impedance testing which showed reflux changes. Unfortunately, she missed her follow-up appointment as she forgot about it and it was never rescheduled afterwards. She now is presenting with abrupt change in mental
status and sense of ataxia. She had a one-time dose of Plavix on August 15. [place] that she had encephalopathy which could be either vascular versus neurodegenerative. Recommended neuropsych evaluation. She also had left face and arm sensory
symptoms thought due to generalized anxiety disorder.
She continues to have dysphagia which has been progressing. She underwent a upper GI series which showed marked tortuosity and decreased mid to distal esophageal motility with marked delay in distal esophageal emptying. Possible distal thoracic
esophageal incomplete stricture less likely mass. I suspect this is her Schiatzki ring that needs repeat dilation to 18 mm.
Ultimately, patient would benefit from upper endoscopy. I would like to wait 5 days from her Plavix dose to decrease the risk of bleeding if dilation is a higher risk of bleeding procedure. She is able to tolerate foods and this is not an
emergency to have done in the hospital. If she was still in the hospital on Friday, we could pursue this inpatient as well. However, she will likely be discharged tomorrow. However, with her history of issues getting the endoscopy done
outpatient, I am concerned she will cancel it or will not have it done. I discussed with the hospitalist we will have social work see her to see what they can do about the cost of the procedure. Patient states her son-in-law can drive her on
Friday and we can reach out to him tomorrow to ensure he will take her to the procedure. His name is Medhat and his phone number is [phone]. My next opening would be September 06 to have done on Friday. I did discuss with her avoiding steaks,
encased meats, and meats in general and to chew her food well.
Original Note:
Today's Communication / Plan
-
etiology of dysphagia/odynophagia related to esophageal dysmotility, concern for possible distal thoracic esophageal stricture vs other
UGI as above with esophageal delay and possible distal esophageal stricture
will review with Dr. Velasco for EGD but had Plavix dose 08/15 and current neuro symptoms
on cholesterol lowering diet will add IDD5 moist and minced to restrictions
cont work up per neurology for neurologic symptoms- for carotid Doppler study
will increased PPI to BID as was on twice a day dosing prior to admission
Assessment / Plan
-
Pt is a 83yo with hx breast CA with prior lumpectomy no chemo or radiation, NIDDM, GERD, HH, HTN, ASCVD, prior PTCA, appe, cataract surgery with onset of dizziness and visual changes with hand numbness, word finding difficulty with concern for TIA
and noted orthostasis. She completed HCT and MRI brain. She now with complaints of chest and epigastric pain with eating. Hx EGD 12/2022 tortous with venous blebs, mild schatzki's ring lower third with dilation, 2 cm HH, erythema in stomach,
erythematous duodenopathy, duodenal erosions with neg bx including neg EOE. No prior esophagram or UTI in past.
08/17/24 UGI-Double Contrast
Marked tortuosity and marked decreased mid to distal esophageal motility with marked delay in distal esophageal emptying. Possible distal thoracic esophageal incomplete stricture, less likely mass. Consider upper endoscopy for more complete
evaluation.
Somewhat limited evaluation of the stomach and duodenum as a result of delayed esophageal emptying. Gastric and duodenal mucosal folds are at least top normal, cannot exclude gastritis and/or duodenitis.
-odynophagia/dysphagia with solids and liquids
-abnormal UTI with decreased motility and delayed esophageal emptying with possible incomplete stricture
-abnormal swallowing evaluation with concern for esophageal dysphagia
-hx schatzki's ring with HH and prior dilation
-concern for TIA on admission with word finding, tingling, dizziness
-orthostasis
other med problems:
-breast CA with prior lumpectomy no chemo or radiation
-NIDDM
-GERD
-ASCVD with prior PTCA
-appe
PLAN:
etiology of dysphagia/odynophagia related to esophageal dysmotility, concern for possible distal thoracic esophageal stricture vs other
UGI as above with esophageal delay and possible distal esophageal stricture
will review with Dr. Velasco for EGD but had Plavix dose 08/15 and current neuro symptoms
on cholesterol lowering diet will add IDD5 moist and minced to restrictions
cont work up per neurology for neurologic symptoms- for carotid Doppler study
will increased PPI to BID as was on twice a day dosing prior to admission
Subjective
Subjective
Date of Service: August 17, 2024
on cholesterol lowering diet, no stools recorded still with some dysphagia but tolerated lunch with avoidance of vegetable and crust
Objective
Data Reviewed
Laboratory Data:
Laboratory Results
08/15/24 04:45
08/15/24 04:45
Laboratory Results
Total Bilirubin 0.7 mg/dl (0.2-1.3) 08/14/24 16:25
AST 24 U/L (14-36) 08/14/24 16:25
ALT 17 U/L (0-35) 08/14/24 16:25
Alkaline Phosphatase 62 U/L (38-126) 08/14/24 16:25
Vital Signs and I&O:
Vital Signs
Temp Pulse Resp BP Pulse Ox
98.0 F 75 18 153/81 99
08/17/24 11:00 08/17/24 11:00 08/17/24 11:00 08/17/24 11:00 08/17/24 11:00
I&O
08/16/24 08/17/24 08/18/24
06:59 06:59 06:59
Intake Total 480 / 480 600 / 600
Balance 480 / 480 600 / 600
Physical Exam
Physical Exam
HEENT: Anicteric and Moist mucous membranes
Cardiology: Normal Sinus Rhythm
Pulmonary: Clear
GI: Soft, Non Distended and Non Tender
Extremities: No Edema
Neuro: Non Focal
--- NOTE | 2024-08-17 15:29 | W.PN.HOSP.TC ---
Today's Communication/Plan
-
Assessment / Plan
Assessment / Plan
Physical Exam
General: no acute appears comfortable at this time
HEENT: Moist mucous membranes and PERRLA EOMI
Respiratory: Clear; No Wheezes, Rales or Rhonchi
Cardiac: S1/S2 and Regular Rhythm; No Murmur
GI: Soft, Non Tender, Non Distended and Normal Bowel Sounds
Musculoskeletal: No Clubbing, No Cyanosis and No Edema
Neuro: AO x 3, Nonfocal/grossly intact, transient left arm tingling which is now resolved
A/P: Patient is an 83y F with PMH significant for hypertension, DM-II and ASCVD who presents to ED for evaluation of ataxia, vision changes and speech / reading difficulty.
Orthostatic hypotension:
-Improved, continue SUMA stockings, no longer orthostatic
-TIA, CVA ruled out, MRI with no acute abnormalities
-Stroke alert this morning 08/17 for transient left arm and face tingling which has since resolved, repeat CT brain shows no acute abnormality
-Neuro eval appreciated, will check carotid Dopplers
-DAPT started empirically, discontinue plavix w/ CVA r/o, cont home ASA
-Lipid panel appreciated Hyperlipidemia cont home statin ezetimibe, counseled low cholesterol diet
-Speech eval appreciated appropriate for regular diet, concern for esophageal dysphagia, GI evaluation ongoing
-PT/OT recommended home services
-outpt neuropyschological testing recommended
Esophageal dysphagia with odynophagia:
-Appreciate CLOTH SHEARER input, small bites, eat slowly
-Upper GI series this morning 08/17 showing esophageal delay and possible distal esophageal stricture
-Follow-up with GI regarding possible EGD
-Continue PPI, increase to twice daily
-Cholesterol-lowering diet, added IDD 5 moist and minced to restrictions
Hypertension
- Continue home metoprolol tartrate increased from daily to BID
- Adjust regimen as needed for improved BP control. Adjustments limited by severe orthostatic hypotension as below
Diet-Controlled DM-II
- Diet controlled
- A1c appreciated 6.8 at goal for DM mgmt A1c<7
-No need for routine FS at this time
GERD
- Stable. Hold home Carafate. PPI twice daily
DVT Prophylaxis: SCDs
Code Status: Full
I spent a total of 40 minutes with the patient or on the floor. More than 50% of this time involved counseling and coordination of care.
Anticipated Discharge: 24 - 48 hours
Subjective/Interval History
-
Date of Service: August 17, 2024
Patient was seen and examined at bedside this morning. Undergoing upper GI series today to evaluate for esophageal pathology. Had a stroke alert this morning for left arm tingling which quickly resolved. CT brain normal.
Objective Data
-
Vital Signs:
Vital Signs
Temp Pulse Resp BP Pulse Ox
98.0 F 75 18 153/81 99
08/17/24 11:00 08/17/24 11:00 08/17/24 11:00 08/17/24 11:00 08/17/24 11:00
I&O
08/16/24 08/17/24 08/18/24
06:59 06:59 06:59
Intake Total 480 / 480 600 / 600
Balance 480 / 480 600 / 600
Review of Systems
-
History Source: Patient
All other systems: Reviewed and negative
Physical Exam
-
General: No Apparent Distress
[2024-08-17 15:41] VITALS: BP 154/61
[2024-08-17] MEDS: PRAVACHOL 40 MG PO (17:39)
[2024-08-17 20:53] VITALS: BP 115/54
[2024-08-17] MEDS: LOPRESSOR 25 MG PO (20:54)
[2024-08-17] MEDS: PROTONIX 40 MG PO (20:55)
[2024-08-17 23:29] VITALS: BP 125/53
[2024-08-18] VITALS (7 sets, daily range): BP systolic 108–157; BP diastolic 57–104; PULSE 55–77; BMI 28.4
[2024-08-18] MEDS: PROTONIX 40 MG PO ×2 (08:52→19:49)
[2024-08-18] MEDS: LOPRESSOR 25 MG PO ×2 (08:53→19:49)
[2024-08-18] MEDS: ZETIA 10 MG PO (08:54)
[2024-08-18] MEDS: ASPIR LOW (ENTERIC COATED) 81 MG PO (08:54)
[2024-08-18] MEDS: PLAVIX 75 MG PO (08:55)
--- NOTE | 2024-08-18 09:08 | W.PN.NEURO.1 ---
Today's Communication / Plan
-
.
Subjective/Objective
Subjective Data
Date of Service: August 18, 2024
Neurology follow-up note.
24h events; intermittently bradycardic down to 55.
Ms. Angela reports experiencing intermittent numbness in the left side of the face for a couple of weeks. Yesterday, she experienced an episode of left facial numbness lasting approximately 10 minutes before full resolution. Her facial numbness was
preceded by numbness in the left arm, which began in the hand.
CD: 70% R ICA stenosis
Brain MRI without jose de jesus (08/15/2024)�no acute infarcts, mild atrophy
LDL 81, HbA1C
PMH: ASCVD, DLP, DM, breast CA
PSH: appendectomy, right lumpectomy, bilateral cataracts surgery, right rotator cuff repair, [facility], tonsillectomy
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
FH: Mother�cancer, daughter from DM/CHF
All:NKDA
ROS: Constitutional: Negative. Negative for chills, fever and unexpected weight change.
Allergic/Immunologic: Negative. Negative for immunocompromised state.
Neurological:Positive transient left arm and face numbness numbness, intermittent tremor
General: Well developed. In no acute distress.
Cardio: Regular rate and rhythm without murmur. Extremities are without cyanosis or edema.
Neuro:
Mental Status: Alert, oriented to person, place, and date. Good fund of knowledge. Follows complex requests across the midline. Comprehension, naming, and repetition intact.
Cranial Nerves: Unable to visualize optic discs due to insufficient dilatation. Pupils are equally round and reactive to light. EOMs full. Visual hewitt full to confrontation. No ptosis. No nystagmus. V1-V3 intact to light touch and pinprick
bilaterally, symmetric. Face symmetric. Impaired hearing AU. The palate elevated well. SCMs and traps 5/5. Tongue midline. No dysarthria.
Motor: Normal bulk and tone. No pronator or arm drift. Strength 5/5 throughout. No clonus.
Coordination: No dysmetria or tremor.
Gait: deferred
Assessment and Plan:
I. TIA.
II. Symptomatic 70% R ICA stenosis
III. Encephalopathy
-Telemetry monitoring
-Continue DAPT for 3 weeks
-Lipitor 40 mg QHS
-repeat brain MRI wo jose de jesus
-TTE
-Vascular surgery consult
I personally reviewed all radiology and labs along with past medical records pertinent to current medical problems. Total time spent in patient care is 35 minutes.
Thank you for allowing us to participate in the care of this patient. We will continue to follow. Please do not hesitate to contact us with any questions or concerns.
Objective Data
Vital Signs
Temp Pulse Resp BP Pulse Ox
36.6 C 72 16 126/62 98
08/18/24 07:20 08/18/24 08:53 08/18/24 07:20 08/18/24 08:53 08/18/24 07:20
Lab Results
08/15/24 04:45
Sodium 134 mmol/L (135-145) L 08/15/24 04:45
Potassium 4.0 mmol/L (3.5-5.1) 08/15/24 04:45
BUN 15 mg/dl (7-17) 08/15/24 04:45
Glucose 104 mg/dl (70-99) H 08/15/24 04:45
Calcium 9.4 mg/dl (8.4-10.2) 08/15/24 04:45
LDL Cholesterol, Calc 81 mg/dl 08/15/24 04:45
Vitamin B12 350 pg/ml (239-931) 08/15/24 04:45
Patient Allergies
No Known Allergies Allergy (Verified 11/24/19 18:53)
Vital Signs and Labs
-
Vital Signs and Labs:
Vital Signs
Temp Pulse Resp BP Pulse Ox
36.6 C 72 16 126/62 98
08/18/24 07:20 08/18/24 08:53 08/18/24 07:20 08/18/24 08:53 08/18/24 07:20
Lab Results
08/15/24 04:45
Sodium 134 mmol/L (135-145) L 08/15/24 04:45
Potassium 4.0 mmol/L (3.5-5.1) 08/15/24 04:45
BUN 15 mg/dl (7-17) 08/15/24 04:45
Glucose 104 mg/dl (70-99) H 08/15/24 04:45
Calcium 9.4 mg/dl (8.4-10.2) 08/15/24 04:45
LDL Cholesterol, Calc 81 mg/dl 08/15/24 04:45
Vitamin B12 350 pg/ml (239-931) 08/15/24 04:45
Medications
-
Medications:
Generic Name Dose Route Start Last Admin
Trade Name Freq PRN Reason Stop Dose Admin
Acetaminophen 650 mg 08/14/24 21:29 08/15/24 16:26
Acetaminophen 325 Mg Tablet PO 09/11/24 21:28 650 mg
Q4HPRN PRN Administration
Mild Pain / Temp > 101
Aspirin 81 mg 08/15/24 08:00 08/18/24 08:54
Aspirin 81 Mg (Enteric Coated) Tablet PO 09/12/24 07:59 81 mg
DAILY DEDE Administration
Clopidogrel Bisulfate 75 mg 08/18/24 08:00 08/18/24 08:55
Clopidogrel 75 Mg Tablet PO 09/07/24 08:01 75 mg
DAILY DEDE Administration
Ezetimibe 10 mg 08/15/24 08:00 08/18/24 08:54
Ezetimibe (Zetia) 10 Mg Tablet PO 09/12/24 07:59 10 mg
DAILY DEDE Administration
Hydralazine HCl 5 mg 08/14/24 21:29 08/14/24 22:19
Hydralazine 20 Mg/Ml Vial IV 09/11/24 21:28 5 mg
Q6HPRN PRN Administration
SBP > 200
Metoprolol Tartrate 25 mg 08/15/24 08:00 08/18/24 08:53
Metoprolol 25 Mg Regular Release Tablet PO 09/12/24 07:59 25 mg
BID DEDE Administration
Pantoprazole Sodium 40 mg 08/17/24 20:00 08/18/24 08:52
Pantoprazole 40 Mg Delayed Release Tablet PO 09/14/24 19:59 40 mg
BID DEDE Administration
Pravastatin Sodium 40 mg 08/15/24 18:00 08/17/24 17:39
Pravastatin 40 Mg Tablet PO 09/12/24 17:59 40 mg
QPM DEDE Administration
Sodium Chloride 0 flush 08/17/24 15:00
Sodium Chloride 0.9% (Flush) Syringe IV 09/14/24 14:59
PER PROTOCOL DEDE
Home Medications
-
Home Medications
aspirin 81 mg tablet,delayed release 81 mg PO DAILY Blood Clot Prevention/Tx 04/04/11
metoprolol tartrate 25 mg tablet 25 mg PO DAILY Blood Pressure 12/24/12
sucralfate 1 gram tablet (Carafate) 1 g PO ACHS Gastrointestinal issue #40 tabs 05/23/23
ezetimibe 10 mg tablet (Zetia) 10 mg PO DAILY High Cholesterol 08/14/24
pantoprazole 40 mg tablet,delayed release (Protonix) 40 mg PO BID Gastrointestinal issue 08/14/24
pravastatin 40 mg tablet 40 mg PO MOWEFR High Cholesterol 08/14/24
[2024-08-18 09:27] LABS: Blood Urea Nitrogen 20 mg/dl (7-17); Calcium 9.7 mg/dl (8.4-10.2); Carbon Dioxide 27 mmol/L (22-30); Chloride 103 mmol/L (98-107); Estimated Creatinine Clearance 52 ml/min; Glucose 134 mg/dl (70-99); Potassium 4.5 mmol/L (3.5-5.1); Sodium 138 mmol/L (135-145); eGFR > 60.00
--- NOTE | 2024-08-18 10:20 | W.PN.GI.CBS2 ---
Today's Communication / Plan
-
ongoing neuro eval, plan EGD outpatient when able to from neuro standpoint, outpatient gi follow up will s/o
Assessment / Plan
-
Salud is an 83-year-old female known to me on from the outpatient setting where I dilated a Schatzki ring. I had recommended a repeat endoscopy but patient was unable to have done due to issues with her co-pay. We ended up getting a esophageal
manometry and pH impedance testing which showed reflux changes. Unfortunately, she missed her follow-up appointment as she forgot about it and it was never rescheduled afterwards. She now is presenting with abrupt change in mental status and sense
of ataxia. She had a one-time dose of Plavix on August 15. [place] that she had encephalopathy which could be either vascular versus neurodegenerative. Recommended neuropsych evaluation. She also had left face and arm sensory symptoms thought due to
generalized anxiety disorder.
She continues to have dysphagia which has been progressing. She underwent a upper GI series which showed marked tortuosity and decreased mid to distal esophageal motility with marked delay in distal esophageal emptying. Possible distal thoracic
esophageal incomplete stricture less likely mass. I suspect this is her Schiatzki ring that needs repeat dilation to 18 mm.
Ultimately, patient would benefit from upper endoscopy. I would like to wait 5 days from her Plavix dose to decrease the risk of bleeding if dilation is a higher risk of bleeding procedure. She is able to tolerate foods and this is not an
emergency to have done in the hospital. However, she has new neurologic symptoms and needs to be on Plavix for 3 weeks. I discussed at length with her son. I have also reached out to neurology and the hospitalist. For now, I have set up a
follow-up outpatient for her on September 06 at 1:00 and her son is aware and will take her to the appointment. At that time, we can reassess if she is able to have the endoscopy done and hold Plavix for 5 days. This will need to be done in the
hospital setting with her recent neurologic issues and we will need to ensure from a neurology standpoint she is safe to undergo an endoscopy.
I discussed with both the patient and the son the importance of chewing her food well. I would try to pur�e as much as possible - I will change her diet. We discussed the signs and symptoms of food impaction that require urgent endoscopy.
At this time, GI will sign off. Please call with any questions or issues.
Total Time Spent with Patient (in minutes): 35
Subjective
Subjective
Date of Service: August 18, 2024
Patient with another episode of facial numbness. Had meatloaf for dinner. Continues to have some dysphagia.
Objective
Data Reviewed
Laboratory Data:
Laboratory Results
08/15/24 04:45
08/18/24 08:19
Laboratory Results
Total Bilirubin 0.7 mg/dl (0.2-1.3) 08/14/24 16:25
AST 24 U/L (14-36) 08/14/24 16:25
ALT 17 U/L (0-35) 08/14/24 16:25
Alkaline Phosphatase 62 U/L (38-126) 08/14/24 16:25
Vital Signs and I&O:
Vital Signs
Temp Pulse Resp BP Pulse Ox
97.8 F 72 16 126/62 98
08/18/24 07:20 08/18/24 08:53 08/18/24 07:20 08/18/24 08:53 08/18/24 07:20
I&O
08/17/24 08/18/24 08/19/24
06:59 06:59 06:59
Intake Total 600 / 600 480 / 480 240 / 240
Balance 600 / 600 480 / 480 240 / 240
Physical Exam
Physical Exam
GI: Non Distended and Non Tender
--- NOTE | 2024-08-18 10:59 | W.PN.UPDATE ---
Addendum entered and electronically signed by Jose Eduardo Walters MD 08/18/24 13:13:
CT angiogram images reviewed. Atherosclerotic plaque is noted at bilateral carotid bifurcations. Left side does not appear to have any significant internal carotid artery stenosis. On the right side about a centimeter distal to the bifurcation
(image 425 of series 502) there appears to be about a 60% diameter reduction of the internal carotid artery stenosis to my measurement. Relatively smooth concentric stenosis. Await MRI results. Await neurology interpretation as to whether this
would be causing her recent symptomatology.
Original Note:
Update Note
Progress Note Update
Seen and examined with OTC CLERK's. Full consultation to follow. Briefly 83-year-old female who noted yesterday some overall confusion, difficulty expressing her words fully and with comprehension when she was reading. Concomitantly she had RIGHT arm
weakness. She noted that her right arm was limp at her side.
This prompted her to go to urgent care and from there she was sent to the emergency room. While here, she developed LEFT facial numbness as well as LEFT upper extremity numbness, and lesser left lower extremity numbness. No weakness in the left
upper extremity or lower extremity. As she had had in the right side prior. Her right-sided symptoms have completely resolved.
Asked to evaluate regarding right carotid stenosis. Cardiovascular risk factors include diabetes, hypertension. She denies any significant coronary disease, denies tobacco use.
On exam/she is awake and alert. Breathing is unlabored. Neurologically no focal deficits currently.
Carotid duplex reviewed. By duplex criteria right side with greater than 70% carotid stenosis. Left side with less than 50% stenosis.
Plan/ ?? Symptomatology secondary to right carotid artery stenosis. She did have left upper and lower extremity numbness and facial numbness. However initially she described right arm complete weakness/limpness. This constellation of symptoms
does not make sense with just a right carotid finding. She is right-hand dominant she notes. She did also note some potential expressive issues as well as comprehension type issues. I think it would behoove us to get further imaging at this
point. Agree with MRI of the brain. Agree with CT angiogram of the head and neck. And then we can look back and see if we think that she is symptomatic to the right carotid or not. Would ask for neurology input regarding symptomatic status given
symptoms that may have been in both arms.
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
--- NOTE | 2024-08-18 14:58 | W.PN.HOSP.TC ---
Today's Communication/Plan
-
Assessment / Plan
Assessment / Plan
Physical Exam
General: no acute appears comfortable at this time
HEENT: Moist mucous membranes and PERRLA EOMI
Respiratory: Clear; No Wheezes, Rales or Rhonchi
Cardiac: S1/S2 and Regular Rhythm; No Murmur
GI: Soft, Non Tender, Non Distended and Normal Bowel Sounds
Musculoskeletal: No Clubbing, No Cyanosis and No Edema
Neuro: AO x 3, Nonfocal/grossly intact
A/P: Patient is an 83y F with PMH significant for hypertension, DM-II and ASCVD who presents to ED for evaluation of ataxia, vision changes and speech / reading difficulty.
Orthostatic hypotension:
-Improved, continue SUMA stockings, no longer orthostatic
-Stroke alert 08/17 for transient left arm and face tingling which has since resolved, repeat CT brain shows no acute abnormality
-Carotid Dopplers and CT angiography of head and neck show 80% stenosis of right carotid artery
-Appreciate neurology and vascular surgery input
-PT/OT recommended home services
-outpt neuropyschological testing recommended
TIA:
-No acute abnormalities on initial brain CT and MRI
-CT angiography of head and neck shows 80% right carotid artery stenosis
-Repeat MRI brain pending
-Continuing DAPT and statin
-Vascular surgery involved for possible carotid intervention if related to her neurologic symptoms
Carotid artery stenosis:
-CT angiography head and neck show 80% right carotid bulb stenosis
-Continuing DAPT and statin
-Follow-up vascular surgery and neurology input regarding potential intervention
Esophageal dysphagia with odynophagia:
-Appreciate REGISTERED RADIOGRAPHER input, small bites, eat slowly
-Upper GI series 08/17 showing esophageal delay and possible distal esophageal stricture
-GI following, plan outpatient follow-up for possible upper endoscopy
-Continue PPI twice daily
Hypertension
- Continue home metoprolol tartrate increased from daily to BID
- Adjust regimen as needed for improved BP control. Adjustments limited by severe orthostatic hypotension as below
Diet-Controlled DM-II
- Diet controlled
- A1c appreciated 6.8 at goal for DM mgmt A1c<7
-No need for routine FS at this time
GERD
- Stable. Hold home Carafate. PPI twice daily
DVT Prophylaxis: SCDs
Code Status: Full
I spent a total of 40 minutes with the patient or on the floor. More than 50% of this time involved counseling and coordination of care.
Anticipated Discharge: 24 - 48 hours
Subjective/Interval History
-
Date of Service: August 18, 2024
Patient was seen and examined at bedside this morning. Feeling better and orthostatic vital signs improved. Vascular consult has been ordered by neurology. Also ordered echocardiogram, CT angiography head and neck, and repeat MRI brain.
Objective Data
-
Labs:
Laboratory Results
08/18/24
08:19
Sodium 138
Potassium 4.5
Chloride 103
Carbon Dioxide 27
BUN 20 H
Creatinine 0.8
Glucose 134 H
Calcium 9.7
Vital Signs:
Vital Signs
Temp Pulse Resp BP Pulse Ox
98 F 56 16 124/76 98
08/18/24 12:58 08/18/24 12:58 08/18/24 12:58 08/18/24 12:58 08/18/24 12:58
I&O
08/17/24 08/18/24 08/19/24
06:59 06:59 06:59
Intake Total 600 / 600 480 / 480 720 / 720
Balance 600 / 600 480 / 480 720 / 720
Review of Systems
-
History Source: Patient
All other systems: Reviewed and negative
Physical Exam
-
General: No Apparent Distress
[2024-08-18] MEDS: LIPITOR 40 MG PO (17:39)
[2024-08-19 03:51] VITALS: BP 125/62
[2024-08-19 05:43] VITALS: BMI 28.2
--- NOTE | 2024-08-19 07:12 | W.PN.UPDATE ---
Update Note
Progress Note Update
Noted radiologist report re: SHORTY stenosis on CTA measured at 80% stenosis causing. To my interpretation and measurement was lesser degree of stenosis (applying NASCET methodology to calculate measurement). However, certainly over 60% stenosed.
Regardless, IF patient if felt to be asymptomatic to this stenosis (if her episode of left arm/face transient numbness were not related), then would hold off on any intervention and can follow up with me as outpatient for further discussion
regarding risks/benefits of elective carotid revascularization vs medical management. It remains unclear to me whether any of her symptoms (neurologic) were RIGHT CAROTID related (she initially described RIGHT arm limpness, and then subsequent
LEFT arm/face numbness). Her MRI brain was negative for any infarct as well.
IF neurology feels more certain that any of the symptomatology was related to RIGHT ICA stenosis, then would proceed with revascularization on this admission. Will await neurology input/follow up.
[2024-08-19 08:19] VITALS: BP 110/57
[2024-08-19] MEDS: PLAVIX 75 MG PO (08:20)
[2024-08-19] MEDS: PROTONIX 40 MG PO (08:20)
[2024-08-19] MEDS: LOPRESSOR 25 MG PO (08:20)
[2024-08-19] MEDS: ASPIR LOW (ENTERIC COATED) 81 MG PO (08:20)
[2024-08-19] MEDS: ZETIA 10 MG PO (08:21)
--- NOTE | 2024-08-19 09:25 | W.PN.NEURO.1 ---
Today's Communication / Plan
-
.
Subjective/Objective
Subjective Data
Date of Service: August 19, 2024
Neurology follow-up note.
24h events: Normotensive, afebrile. No reports of recurrent motor or sensory symptoms.
Telemetry�sinus rhythm
TTE-no intracardiac mass or thrombus formation seen.
CD: 70% R ICA stenosis
CTA head�80% of right carotid bulb stenosis
Brain MRI without jose de jesus (08/18/2024)�no acute infarcts, mild atrophy
PMH: ASCVD, DLP, DM, breast CA
PSH: appendectomy, right lumpectomy, bilateral cataracts surgery, right rotator cuff repair, [employer]ILDING [employer]OR, tonsillectomy
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
FH: Mother�cancer, daughter from DM/CHF
All:NKDA
ROS: Constitutional: Negative. Negative for chills, fever and unexpected weight change.
Allergic/Immunologic: Negative. Negative for immunocompromised state.
Neurological:Positive transient left arm and face numbness numbness, intermittent tremor
General: Well developed. In no acute distress.
Cardio: Regular rate and rhythm without murmur. Extremities are without cyanosis or edema.
Neuro:
Mental Status: Alert, oriented to person, place, and date. Good fund of knowledge. Follows complex requests across the midline. Comprehension, naming, and repetition intact.
Cranial Nerves: Unable to visualize optic discs due to insufficient dilatation. Pupils are equally round and reactive to light. EOMs full. Visual hewitt full to confrontation. No ptosis. No nystagmus. V1-V3 intact to light touch and pinprick
bilaterally, symmetric. Face symmetric. Impaired hearing AU. The palate elevated well. SCMs and traps 5/5. Tongue midline. No dysarthria.
Motor: Normal bulk and tone. No pronator or arm drift. Strength 5/5 throughout. No clonus.
Coordination: No dysmetria or tremor.
Gait: deferred
Assessment and Plan:
I. TIA.
II. R ICA stenosis, probably symptomatic.
III. Encephalopathy, stable
-Telemetry monitoring
-Continue DAPT for 3 weeks
-Lipitor 40 mg QHS
-Vascular surgery follow-up.
-Outpatient neurology follow-up
-Please recall neurology services any questions or concerns
I personally reviewed all radiology and labs along with past medical records pertinent to current medical problems. Total time spent in patient care is 35 minutes.
Thank you for allowing us to participate in the care of this patient. Please do not hesitate to contact us with any questions or concerns.
Objective Data
Vital Signs
Temp Pulse Resp BP Pulse Ox
36.6 C 70 16 110/57 95
08/19/24 03:51 08/19/24 08:20 08/19/24 03:51 08/19/24 08:20 08/19/24 08:19
Lab Results
08/15/24 04:45
08/18/24 08:19
Sodium 138 mmol/L (135-145) 08/18/24 08:19
Potassium 4.5 mmol/L (3.5-5.1) 08/18/24 08:19
BUN 20 mg/dl (7-17) H 08/18/24 08:19
Glucose 134 mg/dl (70-99) H 08/18/24 08:19
Calcium 9.7 mg/dl (8.4-10.2) 08/18/24 08:19
LDL Cholesterol, Calc 81 mg/dl 08/15/24 04:45
Vitamin B12 350 pg/ml (239-931) 08/15/24 04:45
Patient Allergies
No Known Allergies Allergy (Verified 11/24/19 18:53)
Vital Signs and Labs
-
Vital Signs and Labs:
Vital Signs
Temp Pulse Resp BP Pulse Ox
36.6 C 70 16 110/57 95
08/19/24 03:51 08/19/24 08:20 08/19/24 03:51 08/19/24 08:20 08/19/24 08:19
Lab Results
08/15/24 04:45
08/18/24 08:19
Sodium 138 mmol/L (135-145) 08/18/24 08:19
Potassium 4.5 mmol/L (3.5-5.1) 08/18/24 08:19
BUN 20 mg/dl (7-17) H 08/18/24 08:19
Glucose 134 mg/dl (70-99) H 08/18/24 08:19
Calcium 9.7 mg/dl (8.4-10.2) 08/18/24 08:19
LDL Cholesterol, Calc 81 mg/dl 08/15/24 04:45
Vitamin B12 350 pg/ml (239931) 08/15/24 04:45
Medications
-
Medications:
Generic Name Dose Route Start Last Admin
Trade Name Freq PRN Reason Stop Dose Admin
Acetaminophen 650 mg 08/14/24 21:29 08/15/24 16:26
Acetaminophen 325 Mg Tablet PO 09/11/24 21:28 650 mg
Q4HPRN PRN Administration
Mild Pain / Temp > 101
Aspirin 81 mg 08/15/24 08:00 08/19/24 08:20
Aspirin 81 Mg (Enteric Coated) Tablet PO 09/12/24 07:59 81 mg
DAILY DEDE Administration
Atorvastatin Calcium 40 mg 08/18/24 18:00 08/18/24 17:39
Atorvastatin (Lipitor) 40 Mg Tablet PO 09/15/24 17:59 40 mg
QPM DEDE Administration
Clopidogrel Bisulfate 75 mg 08/18/24 08:00 08/19/24 08:20
Clopidogrel 75 Mg Tablet PO 09/07/24 08:01 75 mg
DAILY DEDE Administration
Ezetimibe 10 mg 08/15/24 08:00 08/19/24 08:21
Ezetimibe (Zetia) 10 Mg Tablet PO 09/12/24 07:59 10 mg
DAILY DEDE Administration
Hydralazine HCl 5 mg 08/14/24 21:29 08/14/24 22:19
Hydralazine 20 Mg/Ml Vial IV 09/11/24 21:28 5 mg
Q6HPRN PRN Administration
SBP > 200
Metoprolol Tartrate 25 mg 08/15/24 08:00 08/19/24 08:20
Metoprolol 25 Mg Regular Release Tablet PO 09/12/24 07:59 25 mg
BID DEDE Administration
Pantoprazole Sodium 40 mg 08/17/24 20:00 08/19/24 08:20
Pantoprazole 40 Mg Delayed Release Tablet PO 09/14/24 19:59 40 mg
BID DEDE Administration
Sodium Chloride 0 flush 08/17/24 15:00
Sodium Chloride 0.9% (Flush) Syringe IV 09/14/24 14:59
PER PROTOCOL DEDE
Home Medications
-
Home Medications
aspirin 81 mg tablet,delayed release 81 mg PO DAILY Blood Clot Prevention/Tx 04/04/11
metoprolol tartrate 25 mg tablet 25 mg PO DAILY Blood Pressure 12/24/12
sucralfate 1 gram tablet (Carafate) 1 g PO ACHS Gastrointestinal issue #40 tabs 05/23/23
ezetimibe 10 mg tablet (Zetia) 10 mg PO DAILY High Cholesterol 08/14/24
pantoprazole 40 mg tablet,delayed release (Protonix) 40 mg PO BID Gastrointestinal issue 08/14/24
pravastatin 40 mg tablet 40 mg PO MOWEFR High Cholesterol 08/14/24
[2024-08-19 11:12] VITALS: BP 121/61; BP 155/71; BP 162/75; PULSE 61; PULSE 65
--- NOTE | 2024-08-19 11:32 | W.DCSUMMARY ---
Discharge Summary
Discharge Data
Date of Admission: 08/15/24
Date of Discharge: 08/19/24
-
Pending Results: No
Hospital Course
Ms. Thibodeaux is a 83-year-old female with a medical history of CAD, hypertension, wzm-sthejvr-xpuzdfztj diabetes mellitus, esophageal stenosis (prior dilation of Schatzki ring, lost to follow-up), breast cancer (s/p lumpectomy and radiation 1999),
and right rotator cuff tear (status post repair 2012) who presented with vague neurologic symptoms. She reported having poor balance and dizziness for several months and feeling 'strange'. Just prior to arrival she reported right upper extremity
weakness and numbness. Her symptoms have completely resolved at the time of presentation. She was admitted for further evaluation and management.
CT and MRI brain were unremarkable. She did have an episode of left upper extremity and left facial numbness for which a stroke alert was called however her symptoms quickly resolved and she did not receive TNK. Repeat CT brain and MRI remained
unremarkable with no acute abnormalities. Carotid ultrasound did reveal right carotid bulb stenosis. Subsequent CT angiography of her head and neck redemonstrated this right carotid stenosis of approximately 80%. She will be continued on aspirin,
Plavix, and high intensity statin. She was evaluated by vascular surgery and neurology who agreed that the best course of action was outpatient follow-up for monitoring and possible surgical intervention for her carotid artery disease if needed.
Her orthostatic hypotension improved with IV fluids and medication adjustments and ultimately resolved during this hospitalization. She was evaluated by PT/OT who recommended using a rolling walker as needed and continuing with home health.
Patient will be given a prescription for a rolling walker. She should continue close follow-up with her primary care physician for ongoing blood pressure monitoring and medication adjustments as needed.
Patient reported chronic dysphagia and odynophagia with solids and liquids. She was evaluated by GI while inpatient who noted that they previously dilated her esophageal stricture due to Schatzki's ring but patient was lost to follow-up. Patient
reported she now follows up due to financial issues. Case management was involved during this admission and patient confirms that she is able to afford GI follow-up and has an appointment scheduled. Speech and language pathology evaluated the
patient and recommended small bites of moistened food as able to avoid food impaction. She will be continued on acid suppression twice daily and can continue her home sucralfate.
Her blood glucose was relatively well-controlled and stable around 150 throughout this admission. Her hemoglobin A1c was 6.8%. She appears diet controlled at this time and should follow-up with her for further management.
At time of hospital discharge she was medically stable. She will need close follow-up with vascular surgery, neurology, and GI, and her primary care physician.
Physical Exam
General: no acute appears comfortable at this time
HEENT: Moist mucous membranes and PERRLA EOMI
Respiratory: Clear; No Wheezes, Rales or Rhonchi
Cardiac: S1/S2 and Regular Rhythm; No Murmur
GI: Soft, Non Tender, Non Distended and Normal Bowel Sounds
Musculoskeletal: No Clubbing, No Cyanosis and No Edema
Neuro: AO x 3, Nonfocal/grossly intact
Discharge Plan
-
Patient Disposition: Home with Home Care
Discharge Diagnosis/Procedures: Orthostatic hypotension, right carotid artery stenosis, esophageal dysphagia and odynophagia
Additional Diets: Small bites, moist food
Activity: As tolerated
Activity Restrictions/Additional Instructions:
Ms. Thibodeaux is a 83-year-old female with a medical history of CAD, hypertension, crh-jlyqzvi-hluiutuyv diabetes mellitus, esophageal stenosis (prior dilation of Schatzki ring, lost to follow-up), breast cancer (s/p lumpectomy and radiation 1999),
and right rotator cuff tear (status post repair 2012) who presented with vague neurologic symptoms. She reported having poor balance and dizziness for several months and feeling 'strange'. Just prior to arrival she reported right upper extremity
weakness and numbness. Her symptoms have completely resolved at the time of presentation. She was admitted for further evaluation and management.
CT and MRI brain were unremarkable. She did have an episode of left upper extremity and left facial numbness for which a stroke alert was called however her symptoms quickly resolved and she did not receive TNK. Repeat CT brain and MRI remained
unremarkable with no acute abnormalities. Carotid ultrasound did reveal right carotid bulb stenosis. Subsequent CT angiography of her head and neck redemonstrated this right carotid stenosis of approximately 80%. She will be continued on aspirin,
Plavix, and high intensity statin. She was evaluated by vascular surgery and neurology who agreed that the best course of action was outpatient follow-up for monitoring and possible surgical intervention for her carotid artery disease if needed.
Her orthostatic hypotension improved with IV fluids and medication adjustments and ultimately resolved during this hospitalization. She was evaluated by PT/OT who recommended using a rolling walker as needed and continuing with home health.
Patient will be given a prescription for a rolling walker. She should continue close follow-up with her primary care physician for ongoing blood pressure monitoring and medication adjustments as needed.
Patient reported chronic dysphagia and odynophagia with solids and liquids. She was evaluated by GI while inpatient who noted that they previously dilated her esophageal stricture due to Schatzki's ring but patient was lost to follow-up. Patient
reported she now follows up due to financial issues. Case management was involved during this admission and patient confirms that she is able to afford GI follow-up and has an appointment scheduled. Speech and language pathology evaluated the
patient and recommended small bites of moistened food as able to avoid food impaction. She will be continued on acid suppression twice daily and can continue her home sucralfate.
Her blood glucose was relatively well-controlled and stable around 150 throughout this admission. Her hemoglobin A1c was 6.8%. She appears diet controlled at this time and should follow-up with her for further management.
At time of hospital discharge she was medically stable. She will need close follow-up with vascular surgery, neurology, and GI, and her primary care physician.
Referrals:
Saritha Zavala CRNP [Specified Professional Personl] - 09/06/24 1:00 pm (Please call to reschedule if you can not keep this appointment. If your insurance requires a referral please contact your primary care physician prior to your
appointment. )
Scar Rodriguez Jr., DO [Family Provider] -
Antolin Manzo MD [Active] -
Jose Eudardo Walters MD [Active] -
Prescriptions:
New
atorvastatin 40 mg Tablet
40 mg PO QPM 30 Days Qty: 30 0RF
metoprolol tartrate 25 mg Tablet
25 mg PO BID 30 Days Qty: 60 0RF
clopidogrel 75 mg Tablet
75 mg PO DAILY 30 Days Qty: 30 0RF
Continued
aspirin 81 MG tablet,delayed release (DR/EC)
81 mg PO DAILY
sucralfate [Carafate] 1 gram tablet
1 g PO ACHS Qty: 40 0RF
Rx Instructions:
30min-1 hour before meals and HS
ezetimibe [Zetia] 10 mg Tablet
10 mg PO DAILY
pantoprazole [Protonix] 40 mg tablet,delayed release (DR/EC)
40 mg PO BID
Discontinued
metoprolol tartrate 25 MG tablet
25 mg PO DAILY
Patient Comments:
patient states she has not been taking at all-Dr. Ayala has drug listed on 2 recent clearances for bid dosing
pravastatin 40 mg Tablet
40 mg PO MOWEFR
Discharge Orders:
Discharge Patient (As Directed); Ordered 08/19/24
Ordered By: Connor Esparza
Discharge Date and Time
Print Language: TURKISH
--- NOTE | 2024-08-19 13:01 | CM ---
entered order for discharge.
[facility] set up by [facility] liaison
Pt sates she is ready for discharge.
She said her car was brought to hospital so she could drive home.
Prior to today plan was home with [facility].
PLAN Home with [facility]
== END 2024-08-19 13:50 | disposition home health service (06) | DRG 68 ==
LOC: 4 EAST ACU 13:45
PROVIDERS: Physician Assistant; ADMITTING PHYSICIAN Hospitalist; ATTENDING PHYSICIAN Internal Medicine; CONSULT PHYSICIAN Internal Medicine Gastroenterology; CONSULT PHYSICIAN Psychiatry & Neurology Neurology; EMERGENCY PHYSICIAN Emergency Medicine; FAMILY PHYSICIAN Family Medicine
DX: I65.21 Occlusion and stenosis of right carotid artery (principal); I95.1 Orthostatic hypotension; I10 Essential (primary) hypertension; E78.00 Pure hypercholesterolemia, unspecified; I25.10 Atherosclerotic heart disease of native coronary artery without angina pectoris; E11.9 Type 2 diabetes mellitus without complications; R13.14 Dysphagia, pharyngoesophageal phase; R27.0 Ataxia, unspecified; K22.2 Esophageal obstruction; K21.9 Gastro-esophageal reflux disease without esophagitis; Z59.86 Financial insecurity; Z79.02 Long term (current) use of antithrombotics/antiplatelets; Z79.82 Long term (current) use of aspirin; Z79.899 Other long term (current) drug therapy; Z85.3 Personal history of malignant neoplasm of breast; Z92.3 Personal history of irradiation; Z98.61 Coronary angioplasty status
CPT/HCPCS: 70450; 70496; 70498; 70551; 74246; 80048; 80053; 80061; 82607; 82728; 82746; 82962; 83036; 84439; 84443; 84484; 85025; 85027; 85652; 92507; 92523; 92526; 92610; 93005; 93306; 93880; 97116; 97162; 97166; 97530; 97535; 99285; Q9967

== ENCOUNTER 2024-08-23 07:00 | Inpatient (IN) | payer OTHER, SELFPAY ==
[2024-08-23] VITALS (11 sets, daily range): BP systolic 107–172; BP diastolic 51–96; BMI 28.1; BMI 29.8
--- NOTE | 2024-08-23 07:30 | W.SUR.PREOP ---
Pre-Operative Surgical Note
-
I have examined this patient prior to the performance of the scheduled procedure.
The patient's condition is unchanged from the time of the current History and
Physical and the patient is able to undergo the scheduled procedure.
--- NOTE | 2024-08-23 07:31 | W.PN.UPDATE ---
Update Note
Progress Note Update
Discussed with patient procedure of right carotid endarterectomy. Discussed rationale for procedure based on patient's recent neurologic symptoms, and discussion with neurology who felt that she was likely symptomatic to the right carotid stenosis.
Discussed extensively procedure as well as anticipated outcomes/recovery. Discussed risks including but not limited to bleeding, infection, cardiac complication/CO, cranial nerve injury, stroke (in the symptomatic setting up to 2 to 3%, if
asymptomatic <1%). She understands all wishes to proceed.
[2024-08-23] MEDS: NSS 500 IV (07:35)
[2024-08-23] MEDS: BACTROBAN NASAL 1 GRAM NASAL (07:35)
[2024-08-23 07:42] LABS: Glucose - Point of Care 163 mg/dl (70-99)
[2024-08-23 07:57] LABS: INR 0.98; PT 13.3 Sec (11.4-14.6)
[2024-08-23 08:00] LABS: APTT 26.2 Sec (23.4-35.0)
--- NOTE | 2024-08-23 09:32 | OR.RPT ---
Operative Report
Operative Report
PROCEDURE DATE: 08/23/2024
Preoperative diagnosis: Symptomatic right carotid artery stenosis
Postoperative diagnosis: Same
Procedure: Right carotid endarterectomy with bovine pericardial patch angioplasty and intraoperative EEG/SSEP monitoring.
Surgeon: Romeo
Hotel Registration Clerk: CHARLENE Diane, required for all aspects of procedure including assistance with traction/countertraction, following of suture line, assistance with closure.
Complications: None
Anesthesia: General
Indications for procedure:
Right carotid stenosis. Had presented with neurologic symptoms. [place] by neurology to be symptomatic to the right carotid stenosis. Risk/benefits/alternatives of revascularization all fully discussed. Patient understood and wished to proceed.
Description of procedure:
Patient was identified brought to the operating room placed on the table in supine position. After the adequate administration of anesthesia and perioperative antibiotics she was prepped and draped in the standard surgical fashion. A standard
preoperative timeout was undertaken and everybody was in agreement the plan. A standard longitudinal incision was made in the right neck that was carried through the skin subcutaneous tissue. Using the electrocautery dissection was carried through
the platysma muscle layer and then alongside the anterior medial border of the sternocleidomastoid muscle. Then using a combination of sharp dissection with the Metzenbaum scissors and electrocautery I dissected along the anterior medial border of
the internal jugular vein. The common facial vein branch was ligated between silk ties and then divided. I then deepened my retraction. The common carotid artery was identified and carefully dissected away from the surrounding structures take
great care to avoid any injury to the structures. A vessel loop was passed around it which was double looped, but not yet tightened. Note the vagus nerve was visualized in its usual course posterior lateral to the common carotid artery, and was
protected from harm's way. I then continued my dissection up the common carotid artery to the bulb staying only on the anterior surface of the carotid artery. Then I carried the dissection up to the internal carotid artery and then to the distal
internal carotid artery. The internal carotid artery was somewhat posterior to the external which was more anterior of note. I identified where it was soft and carefully circumferentially dissected the internal carotid artery with minimal
mobilization and passed a vessel loop around it. Note the hypoglossal nerve was preserved from harm's way. The patient was given an appropriate dose of heparin 7000 units. Next I dissected the anterior surface of the external carotid artery and
superior thyroid branches. The superior thyroid branch was far enough away that I was able to just control the external carotid artery proximal to the branch of the superior thyroid (though I visualized the branch very well). The external carotid
was then carefully circumferentially dissected with minimal mobilization and vessel loops passed around it which was double looped but not yet tightened. After 3 minutes of heparin circulation time and confirmation of optimization of the blood
pressure with my anesthesiology colleagues, I clamped the distal internal carotid artery where it was soft. There was no immediate EEG or SSEP changes. After 1 minute of test clamp time there was no changes noted. Therefore at this point, the
vessel loop on the external carotid artery was tightened and the common carotid artery was clamped where it was soft proximally. An arteriotomy was made on the common carotid artery with an 11 blade and extended using a Buchanan scissor. I extended
the arteriotomy onto the mid to distal internal carotid artery. At the distal bulb onto the internal carotid artery there was a mixed consistency type plaque that resulted in a severe stenosis focally as noted on CT scan. A Mchenry was then used to
endarterectomized the plaque. An endarterectomy plane was created, and the plaque was then endarterectomized. Distally I feathered the plaque out to a nice clean endpoint in the distal internal carotid artery. Next I endarterectomized the intima
back to normal intima in the common carotid artery, and the intima was cut flush there. I then grasped the plaque and everted plaque out of the origin of the external carotid artery. The plaque was then sent off for specimen. The origin of the
external carotid artery was carefully visualized and any fine debris were removed with fine forceps. Proximal and distal endpoints were then carefully inspected. Any fine debris was removed with fine forceps, and the intima was noted to be nicely
adherent proximally distally. Next any fine debris were removed throughout the endarterectomy bed with fine forceps. I then flushed heparinized saline. I was very satisfied. Then, I used a bovine pericardial patch to sew a patch angioplasty with
a running 6-0 Prolene suture. Prior to completing and tying down my suture line, I backbled sequentially each branch and reclamped each branch prior to unclamping the next branch. I then irrigated with heparinized saline. Then I completed and
tied down my suture line. We then restored flow in the common carotid and external carotid arteries. Finally, we released flow in the internal carotid artery. There was excellent pulsatile flow in all 3 vessels. There was an excellent Doppler
signal in the internal carotid artery distal to the patch with a good normal low resistance Doppler signal. There was a good Doppler signal in the external carotid artery as well. A couple 6-0 Prolene [id number] sutures were placed along any
bleeding points along the suture line. Protamine was given to reverse the heparin. Hemostasis was completely achieved. We then irrigated and confirmed full hemostasis. We then closed in layers with 2-0 Vicryl layer to reapproximate the
sternocleidomastoid muscle, followed by 3-0 Vicryl platysma muscle running layer, followed by 4 Monocryl subcuticular stitch. Dermabond was applied. The patient tolerated procedure well. She awoke moving all extremities to command with tongue in
the midline.
--- NOTE | 2024-08-23 09:35 | W.SUR.POST ---
Surgical Immediate Post Op
Note
Pre Op Diagnosis: Carotid stenosis
Post Op Diagnosis: Same
Procedure Performed: Right carotid endarterectomy with bovine pericardial patch angioplasty and EEG monitoring
Primary Surgeon: Romeo
Assist: Benedicto LUO
Anesthesia: General
Estimated Blood Loss: 7cc
Fluids: See anesthesia flowsheet
Drains/Shunts: None
Specimens/Cultures: Carotid plaque
Doppler/Duplex/Angio (Y/N): Y
Complications: None
Operative Findings: Woke from anesthesia moving all extremities
[2024-08-23 10:05] LABS: Glucose - Point of Care 143 mg/dl (70-99)
[2024-08-23 10:15] LABS: Hematocrit 32.6 % (37.0-47.0); Hemoglobin 11.5 g/dL (12.0-16.0); Mean Corp Hgb Conc. 35.3 g/dL (33.0-37.0); Mean Corpuscular Hgb 31.3 pg (27.0-31.0); Mean Corpuscular Volume 88.8 fL (81.0-99.0); Mean Platelet Volume 9.2 fL (7.4-10.4); Platelet Count 195 10^3/uL (130-400); Red Blood Cell Count 3.67 10^6/uL (4.20-5.40); Red Cell Dist. Width 12.3 % (11.5-14.5); White Blood Cell Count 7.8 10^3/uL (4.8-10.8)
[2024-08-23 10:24] LABS: APTT 26.7 Sec (23.4-35.0); INR 1.07; PT 14.2 Sec (11.4-14.6)
[2024-08-23] MEDS: SUBLIMAZE 50 MCG IV ×2 (10:26→11:37)
[2024-08-23 10:37] LABS: Blood Urea Nitrogen 15 mg/dl (7-17); Calcium 8.6 mg/dl (8.4-10.2); Carbon Dioxide 26 mmol/L (22-30); Chloride 105 mmol/L (98-107); Estimated Creatinine Clearance 60 ml/min; Glucose 159 mg/dl (70-99); Potassium 4.2 mmol/L (3.5-5.1); Sodium 137 mmol/L (135-145); eGFR > 60.00
[2024-08-23] MEDS: CARDENE 200 IV ×2 (10:41→20:46)
[2024-08-23] MEDS: ASPIR LOW (ENTERIC COATED) 81 MG PO (11:49)
[2024-08-23] MEDS: PLAVIX 75 MG PO (11:50)
[2024-08-23 13:07] LABS: Glucose - Point of Care 165 mg/dl (70-99)
[2024-08-23] MEDS: TYLENOL 650 MG PO (13:27)
[2024-08-23] MEDS: CARAFATE PO (13:28)
[2024-08-23] MEDS: NSS 1000 IV ×2 (13:33→22:06)
--- NOTE | 2024-08-23 13:35 | PTCARENOTE ---
Pt rec'd from PACU into ICU 3361 at 12:30. Pt pleasant and conversant, AOx3. Pt complains of headache pain and right neck pain, as per MACHINE STRAP BUCKLER, did have some relief s/p 2 doses Fent however now rates pain 6/10 again. Pt offered and requests Tylenol
which was administered at 13:30. Right neck CEA site approximated with surgical glue present. Ice pack in place. Pt with Cardene running at 5 mg/hr for SBP 100-165...currently 128/49 via Ruby. NSS at 80/hr ordered and hung. Left radial Ruby
leveled and zeroed, correlating with cuff. Oriented to room and plan of care. Pt thirsty and complaining of dry mouth, offered water and juice. Admission and assessment completed. call ridley in reach.
--- NOTE | 2024-08-23 13:51 | CON.INTV ---
Consultation
Consultation Request
Date/Time Consultation Requested: 08/23
Date/Time Consultation Performed: 08/23
Reason for Consultation: Critical care
Medical History
-
History of Present Illness:
History obtained from the patient and reviewing outpatient records. Patient is a pleasant 83-year-old female with history of diabetes who was recently hospitalized July 2024 discharged with TIA. She was found to have right carotid disease, 80%.
She was discharged on aspirin and Plavix, high intensity statin. She is presently status post right carotid endarterectomy. Postoperatively she complained of headaches, of which head CT ruled out any acute findings. We are asked to help from
critical care standpoint 08/13/2024
Presently, she denies significant shortness of breath, chest pain, nausea. She has chronic constipation. She normally ambulates without difficulty, lives with her son-in-law. Recent hospital stay from 08/14 to 08/20/2024 was reviewed at length
where she presented with speech disturbance and weakness. Patient states that she had been feeling dizzy and apparently had fallen in the recent past
.
PMH: Hypertension, hyperlipidemia, [id number]-icmglvkiv diabetes. History of appendectomy, tonsillectomy, lumpectomy. She denies any history of cancer but records suggest history of breast cancer
Past Medical History
Past Medical History: None (See above)
Past Surgical History: None (See above)
Social History
Tobacco: Non-smoker
Alcohol: None
Drug: None
Personal: (Lives with son-in-law)
Living: With Family
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
Family History
Family History: Other (1 daughter recently from multiple medical problems. She did not take care of his health)
Allergies / Home Medications
Allergies
Allergy/AdvReac Type Severity Reaction Status Date / Time
No Known Allergies Allergy Verified 11/24/19 18:53
Home Medications
�Medication �Instructions �Recorded �Confirmed �Last Taken �Type
aspirin 81 mg tablet,delayed 81 mg PO DAILY Blood Clot 04/04/11 08/23/24 08/22/24 18:00 History
release Prevention/Tx
sucralfate 1 gram tablet (Carafate) 1 g PO ACHS Gastrointestinal issue 05/23/23 08/23/24 08/22/24 18:00 Rx
#40 tabs
ezetimibe 10 mg tablet (Zetia) 10 mg PO DAILY High Cholesterol 08/14/24 08/23/24 08/22/24 18:00 History
pantoprazole 40 mg tablet,delayed 40 mg PO BID Gastrointestinal issue 08/14/24 08/23/24 08/22/24 18:00 History
release (Protonix)
atorvastatin 40 mg tablet 40 mg PO QPM 30 days #30 tabs 08/19/24 08/23/24 08/22/24 18:00 Rx
clopidogrel 75 mg tablet 75 mg PO DAILY 30 days #30 tabs 08/19/24 08/23/24 08/22/24 18:00 Rx
metoprolol tartrate 25 mg tablet 25 mg PO BID 30 days #60 tabs 08/19/24 08/23/24 08/22/24 18:00 Rx
Review of Systems
-
All other systems: Negative unless noted
Vitals / Labs / Diagnostic Testing
Vital Signs
Temp Pulse Resp BP Pulse Ox
97.6 F 78 16 112/52 97
08/23/24 12:47 08/23/24 12:45 08/23/24 12:45 08/23/24 12:45 08/23/24 12:45
Lab Data
08/23/24 10:04
08/23/24 10:04
Laboratory Results
08/23/24 08/23/24
07:32 10:04
PT 13.3 14.2
INR 0.98 1.07
APTT 26.2 26.7
Diagnostic Testing:
Physical Exam
-
HEENT: Normocephalic, Anicteric, Other (Right carotid incision intact) and Other (Left upper extremity A-line)
Cardiovascular: S1/S2, Regular Rhythm, Murmur (n), Rub (n) and Peripheral Edema (n)
Respiratory: Wheeze (n), Rales (n), Rhonchi (n) and Non-Labored Respirations
GI: Soft, Non Distended and Non Tender
Neurology: Awake, Alert and No Motor Deficits (Moves all extremities, cranial nerves grossly intact)
Skin: Good Color
General: Comfortable
Assessment
-
83-year-old female with hypertension, hyperlipidemia, diabetes, recent hospital stay for TIA found to have 80% right carotid stenosis, discharged 08/20/2024. Patient is now status post right carotid endarterectomy with bovine pericardial patch
angioplasty. Postoperatively she is doing well, moving all extremities, cranial nerves grossly intact. Postoperative head CT for headaches without acute findings
S/p rt CEA, bovine patch angioplasty 08/23/2024
Postoperative headache, negative head CT scan
Recent hospitalization for TIA, speech difficulty, dizziness, concentration
80% right carotid stenosis
Negative brain MRI for acute stroke
Mild RV dysfunction, normal RV size per echo 08/18/2024
Conditions present prior to admission
Hypertension/hyperlipidemia
Type 2 diabetes
GERD
History of breast cancer with right lumpectomy
History of appendectomy
Plan/recommendations
At this time, patient appears to be comfortable
She received Tylenol, fentanyl postoperatively for headache 11/[address] scan ruled out any acute findings
Neurologically, she is intact, no gross abnormalities, cranial nerves grossly intact
Blood pressure adequate at this time
Moving forward
Continue with close monitoring, adequate blood pressure monitoring
Neurochecks
Plavix/aspirin to start 08/24 per vascular surgery protocol
Resume outpatient medications, high intensity statin also continuous
EKG 08/17/2024 normal sinus rhythm. Poor R wave progression noted
Echocardiogram 08/18/2024 with normal biventricular function, no obvious cardioembolic source. RV function is slightly reduced
Repeat EKG postoperatively
Sequential teds for DVT prophylaxis
Follow blood sugars
Reviewed with critical care nursing
We will follow
TCCT 31 min
[2024-08-23] MEDS: HEPARIN 5000 UNITS SC (15:24)
[2024-08-23] MEDS: CARAFATE 1 GRAM PO ×2 (15:32→20:31)
[2024-08-23 17:29] LABS: Glucose - Point of Care 267 mg/dl (70-99)
--- NOTE | 2024-08-23 18:29 | PTCARENOTE ---
Pt remains stable with hourly neurochecks WNL. Pt continues to complain of diffuculty swallowing as previously noted. (Speech consult was placed.) VSS, no s/s aspiration, medications administered per orders. Per steam fitter supervisor maintenance, bedside glucose
monitoring ordered for 24 hours with low dose ss coverage. Cardene titrated per orders, see worklist. Safe environment continues.
[2024-08-23] MEDS: LIPITOR 40 MG PO (18:40)
--- NOTE | 2024-08-23 20:00 | PTCARENOTE ---
curing oven tender, pt aaox3, CANTU, Neuro checks intact. ice pack applied to R neck incision. SR HR 70-80s. B/L IV WNL- cardene gtt/IVF infusing per work list. L rad AL leveled/zeroed. RA Sat 96%. pt assisted with bed cordero. POC discussed, call ridley with
pt.
[2024-08-23] MEDS: PROTONIX 40 MG PO (20:31)
[2024-08-23] MEDS: NOVOLOG FLEXPEN-LOW RESISTANCE 3 UNITS SC (20:31)
[2024-08-23] MEDS: LOPRESSOR 25 MG PO (20:31)
[2024-08-23] MEDS: ROXICODONE 5 MG PO (22:42)
[2024-08-23 22:50] LABS: Glucose - Point of Care 204 mg/dl (70-99)
[2024-08-24] VITALS (15 sets, daily range): BP systolic 99–151; BP diastolic 38–97
[2024-08-24] MEDS: HEPARIN 5000 UNITS SC ×4 (00:12→23:29)
--- NOTE | 2024-08-24 01:35 | PTCARENOTE ---
pt desat to 70s when asleep, 2L NC applied.
--- NOTE | 2024-08-24 04:00 | PTCARENOTE ---
no changes in pt assessment.
[2024-08-24 04:09] LABS: Hematocrit 33.7 % (37.0-47.0); Mean Corp Hgb Conc. 35.6 g/dL (33.0-37.0); Mean Corpuscular Hgb 31.5 pg (27.0-31.0); Mean Corpuscular Volume 88.5 fL (81.0-99.0); Mean Platelet Volume 9.2 fL (7.4-10.4); Platelet Count 204 10^3/uL (130-400); Red Blood Cell Count 3.81 10^6/uL (4.20-5.40); Red Cell Dist. Width 12.1 % (11.5-14.5); White Blood Cell Count 8.2 10^3/uL (4.8-10.8)
[2024-08-24 04:14] LABS: INR 1.08; PT 14.3 Sec (11.4-14.6)
[2024-08-24 04:15] LABS: APTT 28.9 Sec (23.4-35.0)
[2024-08-24 04:24] LABS: Blood Urea Nitrogen 12 mg/dl (7-17); Calcium 8.7 mg/dl (8.4-10.2); Carbon Dioxide 24 mmol/L (22-30); Chloride 106 mmol/L (98-107); Estimated Creatinine Clearance 71 ml/min; Glucose 165 mg/dl (70-99); Potassium 4.3 mmol/L (3.5-5.1); Sodium 135 mmol/L (135-145); eGFR > 60.00
[2024-08-24 07:44] LABS: Glucose - Point of Care 169 mg/dl (70-99)
[2024-08-24] MEDS: NOVOLOG FLEXPEN-LOW RESISTANCE 1 UNITS SC (07:49)
--- NOTE | 2024-08-24 07:52 | W.PN.INTV ---
Today's Communication / Plan
Recommendations
Monitor for bradycardia
Aspiration precautions, dysphagia diet
GI consult placed by vascular
Continue antiplatelet therapy
Continue insulin therapy, follow blood sugars
Patient would benefit from outpatient sleep evaluation
Assessment
-
83-year-old female with hypertension, hyperlipidemia, diabetes, recent hospital stay for TIA found to have 80% right carotid stenosis, discharged 08/20/2024. Patient is now status post right carotid endarterectomy with bovine pericardial patch
angioplasty. Postoperatively she is doing well, moving all extremities, cranial nerves grossly intact. Postoperative head CT for headaches without acute findings
S/p rt CEA, bovine patch angioplasty 08/23/2024
Postoperative headache, negative head CT scan
Recent hospitalization for TIA, speech difficulty, dizziness, concentration
80% right carotid stenosis
Negative brain MRI for acute stroke
Mild RV dysfunction, normal RV size per echo 08/18/2024
Conditions present prior to admission
Hypertension/hyperlipidemia
Type 2 diabetes
GERD
History of breast cancer with right lumpectomy
History of appendectomy
Plan/recommendations
At this time, patient appears to be comfortable
Headache has resolved
Urine output adequate
Neurologically nonfocal
Brief episode of bradycardia in the 30s while sitting in the chair eating, mild lightheadedness, resolved spontaneously
According to patient, this has happened before
Moving forward
Continue with close monitoring, adequate blood pressure monitoring
Neurochecks
Plavix/aspirin to start 08/24 per vascular surgery protocol
Resume outpatient medications, high intensity statin also continuous
EKG 08/17/2024 normal sinus rhythm. Poor R wave progression noted
Echocardiogram 08/18/2024 with normal biventricular function, no obvious cardioembolic source. RV function is slightly reduced
Postoperative EKG unchanged
Of bed to chair, ambulate per vascular surgery
Suspect episode of bradycardia vasovagal. Will follow-up closely
Out of bed to chair, ambulate with assistance only
Speech and swallow will be requested for dysphagia, history of Schatzki's ring
GI has been consulted per vascular surgery
Sequential teds for DVT prophylaxis
Follow blood sugars, patient states she does not check them at home
Was told by primary blood sugars are good
Sliding scale continues
Desaturation to 76% while sleeping at night
Would benefit from outpatient sleep clinic follow-up
Reviewed with critical care nursing, respiratory care, pharmacy, vascular team
TCCT 31 min
Subjective Dataa
Subjective Data
Date of Service:
Date of Service: August 24, 2024
Subjective:
Patient overall feeling well. Had episode of bradycardia while sitting in the chair, eating. [place] like something was getting stuck in the back of her throat. She did have some brief lightheadedness but this resolved. Denies chest pain, nausea,
headaches. Nocturnal oximetry 76% while sleeping
Objective Data
Data Reviewed
Vital Signs / I&O / Oxygen:
Vital Signs
Temp Pulse Resp BP Pulse Ox
97.8 F 60 12 103/47 99
08/24/24 03:36 08/24/24 07:30 08/24/24 07:30 08/24/24 00:00 08/24/24 07:00
Intake and Output
08/23/24 08/24/24 08/25/24
06:59 06:59 06:59
Intake Total 2545.0 / 2625.0 80 / 80
Output Total 1500 / 1500
Balance 1045.0 / 1125.0 80 / 80
SaO2 99
Nasal Cannula flow liters per 2
minute
Physical Exam
General: Comfortable and Other (Right carotid incision intact)
HEENT: Normocephalic and Anicteric
Cardiovascular: S1-S2, Regular Rhythm, Murmur (n), Rub (n) and Peripheral Edema (n)
Respiratory: Wheeze (n), Crackles (n), Rhonchi (n), Non-Labored Respirations and Stridor (n)
GI: Soft, Non Distended and Non Tender
Neurology: Awake, Alert and No Motor Deficits (Moves all extremities)
Skin: Good Color, Cyanosis (n), Jaundice (n) and Rash (n)
Labs/Micro/Reports
Lab Data
08/24/24 03:36
08/24/24 03:36
Laboratory Results
08/23/24 08/23/24 08/24/24
07:32 10:04 03:36
PT 13.3 14.2 14.3
INR 0.98 1.07 1.08
APTT 26.2 26.7 28.9
[2024-08-24] MEDS: CARAFATE 1 GRAM PO ×2 (09:06→20:26)
[2024-08-24] MEDS: PLAVIX 75 MG PO (09:06)
[2024-08-24] MEDS: PROTONIX 40 MG PO ×2 (09:07→20:27)
[2024-08-24] MEDS: ZETIA 10 MG PO (09:07)
[2024-08-24] MEDS: ASPIR LOW (ENTERIC COATED) 81 MG PO (09:07)
[2024-08-24] MEDS: LOPRESSOR 25 MG PO ×2 (09:07→20:26)
--- NOTE | 2024-08-24 09:20 | W.PN.VS ---
Addendum entered and electronically signed by Adam Jeffrey III, MD 08/24/24 13:27:
This patient was seen and examined in collaboration with VALERIO Mathew. I agree with the history and physical exam as well as the assessment and plan.
Signed:
Adam Jeffrey III, MD
[facility] Vascular Surgery
[phone] ([phone])
Original Note:
Today's Communication / Plan
-
See below.
Assessment/Plan
-
Assessment: 83-year-old female POD #1 right carotid endarterectomy
Plan:
Discontinue IV fluids
Discontinue arterial line
OOB to chair with progression to ambulation as tolerated
Continue DAPT therapy of Plavix 75 mg p.o. daily and aspirin 81 mg p.o. daily for stroke prevention
Continue statin
Will consult speech therapy for aid in dysphagia, patient has a history of Schatzki ring and per note on prior admission by GI would likely benefit from dilatation (but GI procedure was placed on hold so that we could do carotid endarterectomy
first), appreciate if they can provide recommendations on diet consistency
Subjective Data
-
Date of Service: August 24, 2024
Patient seen and examined at bedside, reports complete resolution of headache. Denies nausea, vomiting, fever, and chills. Endorses intermittent difficulty with swallowing but this is her baseline and is unchanged, does note an intermittent mild
sore throat. Denies unilateral weakness, vision changes, and paresthesia.
Objective Data
-
Vital Signs
Temp Pulse Resp BP Pulse Ox
97.6 F 62 12 126/51 99
08/24/24 08:00 08/24/24 09:07 08/24/24 07:30 08/24/24 09:07 08/24/24 07:00
Intake and Output
08/23/24 08/24/24 08/25/24
06:59 06:59 06:59
Intake Total 2545.0 / 2625.0 80 / 80
Output Total 1500 / 1500 350 / 350
Balance 1045.0 / 1125.0 -270 / -270
Intake:
Oral fluids 780 / 780
IV fluids (Total) 1765.0 / 1845.0 80 / 80
Nss 1,000 ml @ 80 mls/hr IV . 1440 / 1520 80 / 80
[id number] DEDE Rx#:[id number]
cardene 200.0 / 200.0
normosol 125 / 125
Output:
Urine, Voided 1500 / 1500 350 / 350
Lab Results
08/24/24 03:36
08/24/24 03:36
Calcium 8.7 mg/dl (8.4-10.2) 08/24/24 03:36
Physical Exam
-
No apparent distress, resting in bed comfortably
Right neck surgical incision CDI, tongue midline, face symmetrical
No tachycardia
No dyspnea on room air
Moves bilateral upper extremities and lower extremities spontaneously and to command, equal strength
--- NOTE | 2024-08-24 10:42 | PTCARENOTE ---
Pt was rec'd this am from night RN, pleasant and cooperative, talkative, AOx3 however sl forgetful at times. Plan discussed with vascular as well as reel fed printer. Orders rec'd; A-line dc'd, IVF dc'd, pt assisted oob to chair, reports much more
comfortable oob. Pt with no headache this am, neuro checks WNL. 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 Per vascular team, diet
downgraded to puree and speech therapy consulted. Marianna from speech in room to assess pt at 10:30, will discuss plan of care with GI, safe environment maintained.
--- NOTE | 2024-08-24 11:06 | PTOTSP ---
Dysphagia Evaluation
No signs concerning for oral/pharyngeal dysphagia. Patient with known history of esophageal dysphagia (i.e., changes to motility, Schatzki's ring, hiatal hernia). Recommend GI consult at the inpatient level. No further dysphagia tx w/ an BILLIARD PARLOR MANAGER
warranted at this time.
Recommend:
1. IDDSI Level 4 Puree, Thin Liquids (last diet recommendations per GI 08/18/2024)
2. Medications crushed in puree if medically cleared to do so
3. Strategies: upright to 90 degrees, small single sips/bites, slow rate, small frequent meals, upright for at least 60 minutes after PO
4. GI consult
5. Outpatient cognitive linguistic evaluation (recommended 08/15/2024 upon BILLIARD PARLOR MANAGER evaluation; per patient on-going memory changes)
--- NOTE | 2024-08-24 11:24 | CON.GI ---
Addendum entered and electronically signed by Brandy Cohn DO 08/24/24 14:52:
The patient was seen and examined by me independently in collaboration with the nurse practitioner.
Past medical history/social history/medications/allergies/family history reviewed.
Lab data and imaging data reviewed.
Briefly, Salud Thibodeaux is an 83 y.o. female w/ pmhx breast CA with prior lumpectomy no chemo or radiation, carotid disease s/p CEA 08/23/24, NIDDM, GERD, HH, HTN, ASCVD, prior PTCA, appe, cataract surgery who was admitted to last week with
concern TIA, subsequent workup with head CT, MRI brain conerning for right carotid bulb stenosis. She returned today for right CEA. GI consulted for dysphagia. She has a history of schatzki ring, dilated in the past by Dr. Velasco. She reports
recent issues with dysphagia over the last few months, seen by GI last week with UGI series showing tortuosity with decreased esopahgeal motility and delay of emptying and possible distal thoracic esophageal stricture, mass less likely. Her
dysphagia could be multifactorial-- with schatzki ring contributing as well as underlying motility disorder, issue with manometry that was performed during her workup last year. Due to concern for TIA, EGD deferred at that time. After
interdisciplinary discussion with neurology and vascular surgery, plan to perform EGD with likely dilation after we are safely able to discontinue patient's plavix, which will be in 3 weeks. Patient to continue modified diet, discussed with her at
length and she expressed understanding. She is scheduled for EGD with Dr. Velasco on 10/08.
GI will sign off. Please call with questions.
Addendum entered and electronically signed by VALERIO Ramon 08/24/24 14:29:
tentative block out placed 10/08 for EGD in room 5/[address] Velasco. If issues sooner will need to return to ER.
Original Note:
Consultation
-
Date/Time Consultation Requested: 08/24/24 1115
Date/Time Consultation Performed: 08/24/24 1125
Requesting Provider: VALERIO Alan
Performing Provider: VALERIO Ram, Nicol Cohn MD
Reason for Consultation: dysphagia
Medical History
Chief Complaint / HPI
Chief Complaint: epigastric/chest pain
History of Present Illness:
Pt is a 83yo with hx breast CA with prior lumpectomy no chemo or radiation, carotid disease s/p CEA 08/23/24, NIDDM, GERD, HH, HTN, ASCVD, prior PTCA, appe, cataract surgery with admission last week with onset of dizziness and visual changes with
hand numbness, word finding difficulty with concern for TIA and noted orthostasis. She completed HCT and MRI brain with work up concerning of right carotid bulb stenosis. She was to continue on ASA/Plavix and statin. She was also noted
dysphagia, chest and epigastric pain with eating. She was seen by GI last week and completed UGI series with tortuosity with decreased esophageal motility and delay of emptying and possible distal thoracic esophageal incomplete stricture less likely
mass. She was to consider EGD but with neuro symptoms she was to proceed with carotid surgery then follow up with GI outpatient. She now returns for right CEA 08/24 and asked to see for continued complaints of dysphagia and odynophagia post-op
but still remain on ASA and Plavix. Hx EGD 12/2022 with mild schatzki's ring with dilation, 2 cm HH, erythema in stomach, erythematous duodenopathy, duodenal erosions with neg bx. 07/29/2023 manometry-- some issues with manometry as kept
swallowing--Dr. Hernandez reviewed EGD and recommended EGD with dilation up to 18, limit coffee and mints, optimize reflux with diet, lifestyle and meds first.
In review with patient she was noted with continued odynophagia and dysphagia since last admission. She did have some difficulty with applesauce this am. She did remain on PPI and carafate since discharge last week. She currently admits to
daily symptoms and ? few lb wt loss but admits to poor memory. She will have feeling of food sticking in upper esophagus then lower esophagus and stomach with pain when food sits and does not pass. Will be liquid and solids. She will occasionally
have regurgitation of food. She has used pepto bismol with some improvement in past. She also admits to history of constipation with use of fiber supplement. She denies GERD,, abdominal pain, diarrhea, blood or black in stools. last colonoscopy
stable in 2017.
Past Medical History
Past Medical History: Cancer (breast CA), GERD, HTN, NIDDM and Other (ASCVD)
Past Surgical History: Appendectomy, Cardiac (PTCA), Gynecological (breast biopsy/lumpectomy), Orthopedic (right rotator cuff surgery ), Tonsilectomy (T&A) and Other (cataracts, right CEA 08/23/24 )
Social History
Tobacco: Non-Smoker
Alcohol: None
Drug: None
Personal:
Living: With Family (son in law )
Employment: Retired
Family History
Family History: Other (no family hx GI issues )
Allergies / Home Medications
Allergy/AdvReac Type Severity Reaction Status Date / Time
No Known Allergies Allergy Verified 11/24/19 18:53
�Medication �Instructions �Recorded
aspirin 81 mg tablet,delayed 81 mg PO DAILY Blood Clot 04/04/11
release Prevention/Tx
sucralfate 1 gram tablet (Carafate) 1 g PO ACHS Gastrointestinal issue 05/23/23
#40 tabs
ezetimibe 10 mg tablet (Zetia) 10 mg PO DAILY High Cholesterol 08/14/24
pantoprazole 40 mg tablet,delayed 40 mg PO BID Gastrointestinal issue 08/14/24
release (Protonix)
atorvastatin 40 mg tablet 40 mg PO QPM 30 days #30 tabs 08/19/24
clopidogrel 75 mg tablet 75 mg PO DAILY 30 days #30 tabs 08/19/24
metoprolol tartrate 25 mg tablet 25 mg PO BID 30 days #60 tabs 08/19/24
Review of Systems
-
Unable to obtain full review of systems at this time due to: Other (pt forgetful at times )
History Source: Patient
Constitutional: Reports No Symptoms
EENT: Reports Other (odynophagia, dysphagia -solids and liquids )
Respiratory: Reports No Symptoms
Cardiac: Reports Chest Pain
Abdomen/GI: Reports Abdominal Pain, Vomiting (regurgitation) and Constipated
: Reports No Symptoms
Musculoskeletal: Reports No Symptoms
Skin: Reports No Symptoms
Neurological: Reports Dizzy, Weakness, Numbness (arms) and Other (memory issues )
Endocrine: Reports No Symptoms
Hematologic/Lymphatic: Reports No Symptoms
Vital Signs
Temp Pulse Resp BP Pulse Ox
97.6 F 58 12 99/67 99
08/24/24 08:00 08/24/24 10:30 08/24/24 10:30 08/24/24 10:00 08/24/24 09:05
Physical Exam
Exam
General: Well Developed, Well Nourished and No Apparent Distress
HEENT: Normocephalic and Anicteric
Respiratory: Clear
Cardiac: Regular Rhythm
GI: Soft, Non Tender and Non Distended
Musculoskeletal: No Clubbing and No Cyanosis
Skin: Warm and Dry
Neuro: Awake, Alert and Other (forgetful to some questions )
Psych: Calm
Results
WBC 8.2 10^3/uL (4.8-10.8) 08/24/24 03:36
Hgb 12.0 g/dL (12.0-16.0) 08/24/24 03:36
Hct 33.7 % (37.0-47.0) L 08/24/24 03:36
MCV 88.5 fL (81.0-99.0) 08/24/24 03:36
Plt Count 204 10^3/uL (130-400) 08/24/24 03:36
PT 14.3 Sec (11.4-14.6) 08/24/24 03:36
INR 1.08 08/24/24 03:36
APTT 28.9 Sec (23.4-35.0) 08/24/24 03:36
Sodium 135 mmol/L (135-145) 08/24/24 03:36
Potassium 4.3 mmol/L (3.5-5.1) 08/24/24 03:36
Chloride 106 mmol/L (98-107) 08/24/24 03:36
Carbon Dioxide 24 mmol/L (22-30) 08/24/24 03:36
BUN 12 mg/dl (7-17) 08/24/24 03:36
Creatinine 0.6 mg/dL (0.6-1.0) 08/24/24 03:36
Calcium 8.7 mg/dl (8.4-10.2) 08/24/24 03:36
Diagnostic Image Results:
08/18/24 CT Head & Neck Angio W/wo IV
1. Mixed plaque within the right carotid bulb, measurements consistent with approximately 80% stenosis. Findings correlate with findings on recent prior carotid ultrasound.
2. Minimal calcified plaque within the left carotid bulb, associated with less than 50% stenosis, also well correlated with recent prior ultrasound.
3. Mild cerebral atrophy and suspected small vessel change.
08/17/24- UGI series
Marked tortuosity and marked decreased mid to distal esophageal motility with marked delay in distal esophageal emptying. Possible distal thoracic esophageal incomplete stricture, less likely mass. Consider upper endoscopy for more complete
evaluation.
Somewhat limited evaluation of the stomach and duodenum as a result of delayed esophageal emptying. Gastric and duodenal mucosal folds are at least top normal, cannot exclude gastritis and/or duodenitis.
Prior GI Procedures:
12/2022 EGD Prot[place] Normal esophagus.
- Mild Schatzki ring. Dilated.
- 2 cm hiatal hernia.
- Erythematous mucosa in the stomach. Biopsied.
- Erythematous duodenopathy.
- Duodenal erosion without bleeding.
- Normal second portion of the duodenum. Biopsied.
- Biopsies were taken with a cold forceps for
evaluation of eosinophilic esophagitis.
bx neg
2017 colonoscopy treviño - The entire examined colon is normal.
- No specimens collected.
07/29/2023 manometry-- some issues with manometry as kept swallowing--Dr. Hernandez reviewed EGD and recommended EGD with dilation up to 18, limit coffee and mints, optimize reflux with diet, lifestyle and meds first
Assessment / Plan
-
Pt is a 83yo with hx breast CA with prior lumpectomy no chemo or radiation, carotid disease s/p CEA 08/23/24, NIDDM, GERD, HH, HTN, ASCVD, prior PTCA, appe, cataract surgery with admission last week with onset of dizziness and visual changes with
hand numbness, word finding difficulty with concern for TIA and noted orthostasis. She completed HCT and MRI brain with work up concerning of right carotid bulb stenosis. She was to continue on ASA/Plavix and statin. She was also noted
dysphagia, chest and epigastric pain with eating. She was seen by GI last week and completed UGI series with tortuosity with decreased esophageal motility and delay of emptying and possible distal thoracic esophageal incomplete stricture less likely
mass. She was to consider EGD but with neuro symptoms she was to proceed with carotid surgery then follow up with GI outpatient. She now returns for right CEA 08/24 and asked to see for continued complaints of dysphagia and odynophagia post-op
but still remain on ASA and Plavix. Hx EGD 12/2022 with mild schatzki's ring with dilation, 2 cm HH, erythema in stomach, erythematous duodenopathy, duodenal erosions with neg bx.07/29/2023 manometry-- some issues with manometry as kept swallowing--
David reviewed EGD and recommended EGD with dilation up to 18, limit coffee and mints, optimize reflux with diet, lifestyle and meds first.
-odynophagia/dysphagia with solids and liquids
-abnormal UGI 08/17/24- tortuosity/decreased motility/delayed emptying and possible thoracic esophageal stricture
-hx schatzki's ring with HH and prior dilation and recommended repeat 2023 and she did not proceed
-recent admission with TIA on ASA and Plavix
-carotid disease s/p right CEA 08/23
other med problems:
-breast CA with prior lumpectomy no chemo or radiation
-NIDDM
-GERD
-ASCVD with prior PTCA
-appe
PLAN:
etiology of ongoing dysphagia/odynophagia related possible stricture, motility, neuro d/o with recent TIA symptoms vs other
UGI 08/17 as noted and pt also with manometry 2023 and recommended repeat EGD that she did not proceed with
pt now s/p CEA 08/23 and remains on ASA and Plavix
prior notes per neurology need for ASA and Plavix for 3 weeks til 09/09
I sent tiger text to neurology and vascular to verify length of Plavix therapy-- would need to completed 21 days til 09/09
s/p speech eval as noted
will trial clear lunch if tolerating pureed dinner. Would not advance further -- ideally oral diet til plavix completed and EGD can be done
cont supplement BID
s/p speech eval as noted
cont PPI and carafate
Dr Velasco reviewed with son in law last admission about pureed diet til EGD can be completed
Pt is scheduled with Saritha Zavala 09/06 and will try to arrange timing for EGD to follow after wash out
-
-
Thank you for consultation and allowing me to participate in the patient's care. Please call the professional volleyball player GI physician during the after hours with any questions or concerns.
--- NOTE | 2024-08-24 11:42 | CM ---
CM following re: discharge planning.
Reviewed pt's chart,met with pt.
Pt is an 83 year old female, admitted with primary dx of POD #1 right carotid endarterectomy.
Pt reports she lives with son in law in a 2SH, daughter a year ago. Emotional support offered and provided. Pt reports she ambulates with a walker, current with [facility]. Pt expressed her desire to return back home with resumptions of [facility]
and son -in law support. pt stated her son in law to transport at discharge.
IMM reviewed, placed on chart, pt has a copy.
A referral to [facility] made.
Please fax discharge instructions to [facility] at [phone].
D/C plan: home with [facility] and son-in law support. Son in law to transport.
[2024-08-24] MEDS: CARAFATE PO ×2 (12:02→17:43)
[2024-08-24] MEDS: NOVOLOG FLEXPEN-LOW RESISTANCE 3 UNITS SC (12:02)
[2024-08-24 12:06] LABS: Glucose - Point of Care 257 mg/dl (70-99)
[2024-08-24] MEDS: ANESTHETIC LOZENGE 1 LOZENGE PO (13:31)
[2024-08-24 16:45] LABS: Glucose - Point of Care 216 mg/dl (70-99)
[2024-08-24] MEDS: NOVOLOG FLEXPEN-MODERATE RESISTANCE 3 UNITS SC (17:47)
[2024-08-24] MEDS: LIPITOR 40 MG PO (17:47)
--- NOTE | 2024-08-24 18:10 | PTCARENOTE ---
Pt will be staying another night to evaluate dietary intake and swallowing issues. Pt states to RN that she plans to drive herself home when discharged as her son in law with be away for 'a few days.' Clarified multiple times that patient will not
be cleared to drive for 2 weeks per vascular. Pt's stump shooter (Minerva) and son in law later arrived to visit, stump shooter Minerva offered to drive Pat home if her son in law is unavailable. Phone number left with patient and her son in law. case resource manager Kj
updated of the above info.
Pt did tolerated her pureed dinner tray with no choking or difficulty swallowing noted. Pt assisted to and from bathroom several times and now back into bed. No needs communicated at this time. Bed alarm in place.
--- NOTE | 2024-08-24 19:30 | PTCARENOTE ---
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 SB-SR HR 50-60s. RAC IV WNL. minimal assist to bathroom. POC discussed, bed alarm on, call ridley with pt.
[2024-08-24] MEDS: ROXICODONE 5 MG PO (20:26)
[2024-08-24 21:35] LABS: Glucose - Point of Care 188 mg/dl (70-99)
[2024-08-25] VITALS (16 sets, daily range): BP systolic 109–161; BP diastolic 43–75; PULSE 64–66
--- NOTE | 2024-08-25 04:00 | PTCARENOTE ---
no change in pt assessment.
[2024-08-25 05:19] LABS: Hematocrit 34.5 % (37.0-47.0); Hemoglobin 12.2 g/dL (12.0-16.0); Mean Corp Hgb Conc. 35.4 g/dL (33.0-37.0); Mean Corpuscular Hgb 31.6 pg (27.0-31.0); Mean Corpuscular Volume 89.4 fL (81.0-99.0); Mean Platelet Volume 9.6 fL (7.4-10.4); Platelet Count 214 10^3/uL (130-400); Red Blood Cell Count 3.86 10^6/uL (4.20-5.40); Red Cell Dist. Width 12.4 % (11.5-14.5); White Blood Cell Count 7.8 10^3/uL (4.8-10.8)
[2024-08-25 05:29] LABS: Blood Urea Nitrogen 14 mg/dl (7-17); Calcium 9.2 mg/dl (8.4-10.2); Carbon Dioxide 27 mmol/L (22-30); Chloride 105 mmol/L (98-107); Estimated Creatinine Clearance 61 ml/min; Glucose 143 mg/dl (70-99); Potassium 4.7 mmol/L (3.5-5.1); Sodium 139 mmol/L (135-145); eGFR > 60.00
[2024-08-25 07:42] LABS: Glucose - Point of Care 127 mg/dl (70-99)
--- NOTE | 2024-08-25 07:51 | PN.DE.MGMTRT ---
Insulin Management
- -
08/25/2024 Diabetes Management Consult
Patient admitted 08/23 with carotid stenosis, for OR. PMH Breast CA with lumpectomy, ASCVD, carotid disease, diabetes diet controlled, HTN, GERD, recent concern for TIA. Prior to admission on no medication for diabetes. 08/15/2024 A1C 6.8%, cr
.7, eGFR > 60.
Patient is POD 2 s/p R carotid endarterectomy with bovine pericardial patch.
Patient is awake alert and oriented able to discuss diabetes care. States she walks daily, until 2 weeks ago when hospitalized, and usually is very careful with food selection.
Due to patient age, 83, and A1C in ideal range would recommend she follow with primary doctor for possible need for medication in the future.
Discussed with patient importance of careful meal selection and portion sizes and resuming her daily walk when permitted by surgeon.
Discussed with nurse.
Patient for possible discharge later today.
Diabetes History
- -
Type of Diabetes: 2
Pre-Admission Diabetes Regimen
08/25/24
04:51
Creatinine 0.7
Insulin Pump Settings
IP Diabetes Regimen
08/24/24 08/24/24 08/24/24
11:55 16:34 21:34
Glucose
POC Glucose 257 H 216 H 188 H
08/25/24 08/25/24
04:51 07:40
Glucose 143 H
POC Glucose 127 H
Meal type: Lunch
Meal type: Breakfast
Amount consumed: 100%
Amount consumed: 25%
Patient Education
--- NOTE | 2024-08-25 07:52 | W.PN.INTV ---
Today's Communication / Plan
Recommendations
Continue with out of bed to chair, PT/OT, ambulate
Elevated blood sugars noted, awaiting POULTRY INSPECTOR input
Suspicion for sleep disordered breathing based on findings
Pulmonary follow-up left in chart
We will sign off given disposition efforts. Please call with questions
Assessment
-
83-year-old female with hypertension, hyperlipidemia, diabetes, recent hospital stay for TIA found to have 80% right carotid stenosis, discharged 08/20/2024. Patient is now status post right carotid endarterectomy with bovine pericardial patch
angioplasty. Postoperatively she is doing well, moving all extremities, cranial nerves grossly intact. Postoperative head CT for headaches without acute findings
S/p rt CEA, bovine patch angioplasty 08/23/2024
Postoperative headache, negative head CT scan
Recent hospitalization for TIA, speech difficulty, dizziness, concentration
80% right carotid stenosis
Negative brain MRI for acute stroke
Mild RV dysfunction, normal RV size per echo 08/18/2024
Conditions present prior to admission
Hypertension/hyperlipidemia
Type 2 diabetes
GERD
History of breast cancer with right lumpectomy
History of appendectomy
Plan/recommendations
At this time, patient appears to be comfortable
She is without symptoms
Neuroexam is nonfocal
No further episodes of significant bradycardia
Dysphagia diet noted
Moving forward
Continue with management per surgery
Plavix/aspirin per vascular surgery protocol
Resume outpatient medications, high intensity statin also continuous
EKG 08/17/2024 normal sinus rhythm. Poor R wave progression noted
Echocardiogram 08/18/2024 with normal biventricular function, no obvious cardioembolic source. RV function is slightly reduced
Postoperative EKG unchanged
Of bed to chair, ambulate per vascular surgery
Suspect episode of bradycardia vasovagal. Will follow-up closely, has not recurred with dysphagia diet
Speech and swallow will be requested for dysphagia, history of Schatzki's ring
GI has been consulted per vascular surgery
Recommend outpatient GI follow-up
Sequential teds for DVT prophylaxis
Follow blood sugars, patient states she does not check them at home
Was told by primary blood sugars are good
Sliding scale continues
Diabetic teaching consulted per vascular
Desaturation to 76% while sleeping at night
Would benefit from outpatient sleep clinic follow-up
Pulmonary information left in chart
Reviewed with critical care nursing, respiratory care, pharmacy
Disposition efforts
Subjective Dataa
Subjective Data
Date of Service:
Date of Service: August 25, 2024
Subjective:
Patient feels well. She denies any shortness of breath, chest pain, nausea. She is now on a dysphagia diet. No further issues with bradycardia. Appears to be in good spirits
Objective Data
Data Reviewed
Vital Signs / I&O / Oxygen:
Vital Signs
Temp Pulse Resp BP Pulse Ox
97.9 F 54 13 154/57 97
08/25/24 07:16 08/25/24 06:00 08/25/24 06:00 08/25/24 06:00 08/25/24 06:00
Intake and Output
08/24/24 08/25/24 08/26/24
06:59 06:59 06:59
Intake Total 2545.0 / 2625.0 1380 / 1380
Output Total 1500 / 1500 350 / 350
Balance 1045.0 / 1125.0 1030 / 1030
SaO2 97
Nasal Cannula flow liters per 2
minute
Physical Exam
General: Comfortable and Other (Right carotid incision intact)
HEENT: Normocephalic and Anicteric
Cardiovascular: S1-S2, Regular Rhythm, Murmur (n), Rub (n) and Peripheral Edema (n)
Respiratory: Wheeze (n), Crackles (n), Rhonchi (n), Non-Labored Respirations and Stridor (n)
GI: Soft, Non Distended and Non Tender
Neurology: Awake, Alert and No Motor Deficits (Moves all extremities)
Skin: Good Color, Cyanosis (n), Jaundice (n) and Rash (n)
Labs/Micro/Reports
Lab Data
08/25/24 04:51
08/25/24 04:51
--- NOTE | 2024-08-25 08:00 | PTCARENOTE ---
Assumed care of patient. Pt seen by and vascular team this am. Possible d/c home later today. Would like pt to be seen by diabetic HEALTH SERVICES COORDINATOR and nutrition prior to discharge. Pt rec'd A&Ox3...pleasant. Neuro checks done per orders. CANTU's.
Takes po meds and sips of water w/o issue. Breakfast ordered. S1 S2 reg w/ SB/1st degree AVB on monitor. +PP. On R/A..sats 97%. Lungs clear. Abdomen round...+BS. Voids in bathroom. Skin WNL except right neck incision. Well approximated,
ecchymotic, and local erythema noted. 18P RAC capped. VS documented. Call ridley within reach. Will continue to monitor.
[2024-08-25] MEDS: NOVOLOG FLEXPEN-MODERATE RESISTANCE SC (08:10)
[2024-08-25] MEDS: ASPIR LOW (ENTERIC COATED) 81 MG PO (08:11)
[2024-08-25] MEDS: PROTONIX 40 MG PO (08:12)
[2024-08-25] MEDS: PLAVIX 75 MG PO (08:13)
[2024-08-25] MEDS: LOPRESSOR 25 MG PO (08:13)
[2024-08-25] MEDS: ZETIA 10 MG PO (08:13)
[2024-08-25] MEDS: CARAFATE 1 GRAM PO (08:14)
[2024-08-25] MEDS: HEPARIN 5000 UNITS SC (08:14)
--- NOTE | 2024-08-25 08:56 | W.PN.VS ---
Today's Communication / Plan
-
Patient seen and examined at bedside with Dr. Jose Eduardo Walters, below plan reviewed with attending.
Assessment/Plan
-
Assessment: 83-year-old female POD #2 right carotid endarterectomy
Plan:
At patient's request we will ask dietary to see patient to provide further education on pur�ed diet
Patient with hemoglobin A1c at 6.8 on 08/15/2024 when she was previously admitted and has had continued elevated blood glucose readings while inpatient will ask diabetes nurse practitioner to assess patient to determine if diabetes medication should
be initiated
OOB to chair with progression to ambulation as tolerated
Continue DAPT therapy of Plavix 75 mg p.o. daily and aspirin 81 mg p.o. daily for stroke prevention
Continue statin
Likely discharge later today pending evaluation of diabetic CRYPTOLOGIC SUPPORT SPECIALIST
Subjective Data
-
Date of Service: August 25, 2024
Patient seen and examined at bedside, reports adequate postoperative pain management. Reports tolerance of pur�ed diet but does not appreciate taste or limited variety of foods. However, she does endorse that she can easily tolerate swallowing the
pur�e diet. Denies unilateral weakness, headache, or vision changes.
Objective Data
-
Vital Signs
Temp Pulse Resp BP Pulse Ox
97.9 F 59 13 128/63 97
08/25/24 07:16 08/25/24 08:13 08/25/24 06:00 08/25/24 08:13 08/25/24 06:00
Intake and Output
08/24/24 08/25/24 08/26/24
06:59 06:59 06:59
Intake Total 2545.0 / 2625.0 1380 / 1380
Output Total 1500 / 1500 350 / 350
Balance 1045.0 / 1125.0 1030 / 1030
Intake:
Oral fluids 780 / 780 1300 / 1300
IV fluids (Total) 1765.0 / 1845.0 80 / 80
Nss 1,000 ml @ 80 mls/hr IV . 1440 / 1520 80 / 80
[id number] DEDE Rx#:[id number]
cardene 200.0 / 200.0
normosol 125 / 125
Output:
Urine, Voided 1500 / 1500 350 / 350
Other:
Number of approximated LARGE 1
amounts of urine
Lab Results
08/25/24 04:51
08/25/24 04:51
Calcium 9.2 mg/dl (8.4-10.2) 08/25/24 04:51
Physical Exam
-
No apparent distress, resting in bed comfortably
Right neck surgical incision CDI, tongue midline, face symmetrical
No tachycardia
No dyspnea on room air
Moves bilateral upper extremities and lower extremities spontaneously and to command, equal strength
[2024-08-25] MEDS: ROXICODONE 5 MG PO (10:22)
--- NOTE | 2024-08-25 12:00 | PTCARENOTE ---
Pt seen by special educator and manufacturing baker. Pt ambulating in room w/o issue. No major changes in physical assessement. Tentative d/c home today.
[2024-08-25] MEDS: CARAFATE PO (12:18)
[2024-08-25 13:25] LABS: Glucose - Point of Care 151 mg/dl (70-99)
[2024-08-25] MEDS: NOVOLOG FLEXPEN-MODERATE RESISTANCE 1 UNITS SC (13:30)
--- NOTE | 2024-08-25 15:15 | CM ---
CM following re: discharge planning.
Reviewed pt's chart, met with pt.
Discharge order noted. Pt is aware, expressed her agreement and she stated her son in law will not be available to take her home and director special education will transport her home. IMM reviewed, placed on chart, pt has a copy.
Please fax discharge instructions to [facility] at [phone].
D/C plan: home with [facility] and son-in law support. [employer] to transport.
--- NOTE | 2024-08-25 16:00 | PTCARENOTE ---
Pt d/c'd to home after rec'ing d/c instructions. formulator compounder and IV site removed. All belongings collected from room. Pt taken in wheelchair and driven home by friend.
== END 2024-08-25 16:18 | disposition home health service (06) | DRG 39 ==
LOC: ICU 07:00
PROVIDERS: Nurse Practitioner; Nurse Practitioner Acute Care; ADMITTING PHYSICIAN Surgery Vascular Surgery; CONSULT PHYSICIAN Internal Medicine; CONSULT PHYSICIAN Internal Medicine Critical Care Medicine; PRIMARYCARE PHYSICIAN Family Medicine
PROC: 03UK0KZ Supplement Right Internal Carotid Artery with Nonautologous Tissue Substitute, Open Approach (ICD-10-PCS; 2024-08-23)
PROC: 03CK0ZZ Extirpation of Matter from Right Internal Carotid Artery, Open Approach (ICD-10-PCS; 2024-08-23)
DX: I65.21 Occlusion and stenosis of right carotid artery (principal); Z86.73 Personal history of transient ischemic attack (TIA), and cerebral infarction without residual deficits; Z79.899 Other long term (current) drug therapy; Z79.02 Long term (current) use of antithrombotics/antiplatelets; E11.9 Type 2 diabetes mellitus without complications; K59.09 Other constipation; Z90.49 Acquired absence of other specified parts of digestive tract; Z85.3 Personal history of malignant neoplasm of breast; E78.00 Pure hypercholesterolemia, unspecified; K21.9 Gastro-esophageal reflux disease without esophagitis; I10 Essential (primary) hypertension; I25.10 Atherosclerotic heart disease of native coronary artery without angina pectoris; Z98.61 Coronary angioplasty status; Z79.82 Long term (current) use of aspirin
CPT/HCPCS: 88304; 88311; 35301; 70450; 80048; 82962; 85027; 85610; 85730; 86850; 86900; 86901; 92610; 93005; 95938; 95941; 95955; 97162; 97166

== ENCOUNTER 2024-10-08 06:08 | Day surgery (SDC) | payer MEDICARE, SELFPAY ==
[2024-10-08 11:00] VITALS: BMI 28.4
[2024-10-08 11:03] VITALS: BP 158/85
[2024-10-08 11:11] VITALS: BMI 28.4
[2024-10-08 11:11] LABS: Glucose - Point of Care 145 mg/dl (70-99)
--- NOTE | 2024-10-08 12:30 | PTCARENOTE ---
During pre op admission, patient found to be a poor historian. Pt unsure of medications that she is taking and if she took Plavix. Patient also reported driving self into hospital today for procedure and did not have a safe ride home as her son in
law had to travel to [place] for an emergency. Patient's 13 year old grandson is only person at home today. Patient also reported feeling 'a little off, like when I had my stroke' earlier this morning upon waking at 07:30. Modified NIH done bedside
by RN and found to be 0, BS checked and found to be 145. Dr. Spann aware and assessed patient at bedside. Per Dr. Spann, no need to go to ER as patient is asymptomatic at this time. Dr. Velasco aware of situation and canceled procedure. Pt will
follow up with Dr. Velasco in office. Son in law called and left message about situation.
== END 2024-10-08 12:40 | disposition home or self-care (01) ==
LOC: SDS 06:08
PROVIDERS: ATTENDING PHYSICIAN Internal Medicine Gastroenterology
DX: R13.10 Dysphagia, unspecified (principal); Z53.09 Procedure and treatment not carried out because of other contraindication; Z79.02 Long term (current) use of antithrombotics/antiplatelets
CPT/HCPCS: 82962

== ENCOUNTER → 2024-10-20 09:55 | Outpatient (REF) | payer MEDICARE, SELFPAY | LOC: RAD 09:55 | PROVIDERS: ATTENDING PHYSICIAN Physician Assistant; FAMILY PHYSICIAN Family Medicine | DX: I65.21 Occlusion and stenosis of right carotid artery (principal) | CPT/HCPCS: 93880 ==

== ENCOUNTER → 2024-10-28 08:48 | Outpatient (REF) | payer MEDICARE, SELFPAY | LOC: RAD 08:48 | PROVIDERS: ATTENDING PHYSICIAN Surgery Vascular Surgery; FAMILY PHYSICIAN Family Medicine | DX: I65.21 Occlusion and stenosis of right carotid artery (principal) | CPT/HCPCS: 70496; 70498; Q9967 ==

== ENCOUNTER 2024-11-01 09:22 | Day surgery (SDC) | payer MEDICARE, SELFPAY ==
[2024-11-01 09:22] VITALS: BP 179/74
[2024-11-01 09:28] VITALS: BMI 26.4
[2024-11-01 09:29] VITALS: BMI 26.4
[2024-11-01 11:15] VITALS: BP 118/57
[2024-11-01 11:30] VITALS: BP 134/62
== END 2024-11-01 12:10 | disposition home or self-care (01) ==
LOC: SDS 09:22
PROVIDERS: ATTENDING PHYSICIAN Internal Medicine; FAMILY PHYSICIAN Internal Medicine
DX: K22.2 Esophageal obstruction (principal); K22.4 Dyskinesia of esophagus; K44.9 Diaphragmatic hernia without obstruction or gangrene; K31.89 Other diseases of stomach and duodenum; R13.10 Dysphagia, unspecified
CPT/HCPCS: 43249; 43239; 88305; 88342; C1726

== ENCOUNTER → 2024-11-23 06:27 | Outpatient (REF) | payer MEDICARE, SELFPAY ==
[2024-11-23 07:45] LABS: Hematocrit 40.0 % (37.0-47.0); Hemoglobin 13.7 g/dL (12.0-16.0); Mean Corp Hgb Conc. 34.3 g/dL (33.0-37.0); Mean Corpuscular Volume 89.9 fL (81.0-99.0); Nucleated Red Blood Cells % 0 %; Platelet Count 227 10^3/uL (130-400); Red Cell Dist. Width 12.2 % (11.5-14.5)
[2024-11-23 08:29] LABS: ALT (SGPT) 12 U/L (0-35); AST (SGOT) 15 U/L (14-36); Albumin 4.4 g/dl (3.5-5.0); Alkaline Phosphatase 58 U/L (38-126); Blood Urea Nitrogen 16 mg/dl (7-17); Calcium 9.7 mg/dl (8.4-10.2); Carbon Dioxide 28 mmol/L (22-30); Chloride 101 mmol/L (98-107); Glucose 129 mg/dl (70-99); Potassium 5.0 mmol/L (3.5-5.1); Sodium 137 mmol/L (135-145); Total Protein 6.7 g/dl (6.3-8.2); eGFR > 60.00
== END ==
LOC: REG 06:27
PROVIDERS: ATTENDING PHYSICIAN Family Medicine
DX: I65.21 Occlusion and stenosis of right carotid artery (principal); E11.40 Type 2 diabetes mellitus with diabetic neuropathy, unspecified; R53.83 Other fatigue
CPT/HCPCS: 36415; 80053; 85025

== ENCOUNTER → 2024-12-31 10:30 | Outpatient (REF) | payer MEDICARE, SELFPAY ==
[2024-12-31 12:21] LABS: Hematocrit 40.3 % (37.0-47.0); Hemoglobin 13.7 g/dL (12.0-16.0); Mean Corp Hgb Conc. 34.0 g/dL (33.0-37.0); Mean Corpuscular Volume 90.2 fL (81.0-99.0); Nucleated Red Blood Cells % 0 %; Platelet Count 234 10^3/uL (130-400); Red Cell Dist. Width 12.2 % (11.5-14.5)
[2024-12-31 12:55] LABS: ALT (SGPT) 12 U/L (0-35); AST (SGOT) 16 U/L (14-36); Albumin 4.4 g/dl (3.5-5.0); Alkaline Phosphatase 62 U/L (38-126); Blood Urea Nitrogen 13 mg/dl (7-17); Calcium 9.6 mg/dl (8.4-10.2); Carbon Dioxide 31 mmol/L (22-30); Chloride 99 mmol/L (98-107); Glucose 140 mg/dl (70-99); Potassium 4.9 mmol/L (3.5-5.1); Sodium 135 mmol/L (135-145); Total Protein 6.6 g/dl (6.3-8.2); eGFR > 60.00
[2024-12-31 13:56] LABS: C-Reactive Protein < 5.00 mg/L (0.0-10.00)
== END ==
LOC: RAD 10:30
PROVIDERS: ATTENDING PHYSICIAN Family Medicine
DX: M79.604 Pain in right leg (principal); M79.605 Pain in left leg
CPT/HCPCS: 36415; 80053; 82550; 85025; 85652; 86140; 86618; 93922; 93925

== ENCOUNTER 2025-01-16 12:43 | Emergency (ER) | payer MEDICARE, SELFPAY ==
[2025-01-16] VITALS (14 sets, daily range): BP systolic 153–189; BP diastolic 62–142; PULSE 59–65; BMI 27.0
[2025-01-16 12:59] LABS: Hematocrit 40.8 % (37.0-47.0); Hemoglobin 14.6 g/dL (12.0-16.0); Mean Corp Hgb Conc. 35.8 g/dL (33.0-37.0); Mean Corpuscular Volume 85.2 fL (81.0-99.0); Nucleated Red Blood Cells % 0 %; Platelet Count 257 10^3/uL (130-400); Red Cell Dist. Width 12.0 % (11.5-14.5)
--- NOTE | 2025-01-16 13:19 | ED.GENMED ---
History of Present Illness
General
Chief Complaint: Fainting Sensation
Source: patient
Exam Limitations: none
Time Seen by Provider: 01/16/25 12:57
Nursing documentation reviewed up to this point in time: agreed with
History of Present Illness
History of Present Illness:
Patient is an 84-year-old female with history of hypertension, diabetes who presents to the emergency department via EMS after near syncopal event in [employer]. Patient states that she was standing in the front pew toward the end of service when she
became very lightheaded and she felt weak. Appartently she began to lean forward which jose attention from others near her who assisted her down onto the pew.
She does not believe she ever lost consciousness. She denies any preceding chest pain, shortness of breath, back pain, headache, numbness/tingling or unilateral weakness. She denies any visual changes or true dizziness sensation.
Patient did not have anythign to eat or drink this morning prior to near syncopal event.
Past History
Past History
ED Past Medical History: Cancer (Breast), GERD, HTN, Hypercholesterolemia, NIDDM and Other (Neuropathy, Back pain, Shingles)
ED Past Surgical History: Appendectomy, Orthopedic (Right thumb joint repair), Tonsilectomy and Other (Cataract surgery, Lumpectomy)
Social History
Tobacco: Non-smoker
Alcohol: None
Personal:
Living: alone
Employment: Retired
Family History
Family History: Negative Diabetes, Hypertension or CAD
Review of Systems
Review of Systems
Allergies reviewed?: Yes
All Other Systems: ROS reviewed and negative except as documented in HPI and ROS
Phy Exam
Physical Exam
Physical Exam:
Vitals: Hypertensive, otherwise vital signs stable. Afebrile
General: Patient is well appearing, no acute distress. Nontoxic appearing
Skin: Warm and dry, no rashes or lesions
Head: Normocephalic, atraumatic
Eyes: Sclera nonicteric.
Throat: Protecting airway
Neck: Normal ROM, no cervical spine tenderness, no meningismus
Cardiac: Regular rate and rhythm, no murmurs. 2+ palpable radial pulses bilaterally
Pulm: Normal respiratory effort, no wheezes, rales, rhonchi heard on exam
Abdomen: Abdomen soft and nontender.
Extremities: No evidence of cyanosis or edema
Neuro: AAOx3. Grossly intact.
Psychiatric: Normal affect.
Course
Orders/Labs/Results
Orders:
Orders
01/16/25 12:50
Electrocardiogram (*1) Urgent
Reason for Study: Chest Pain
EKG- Treatment ONCE
01/16/25 12:51
Complete Blood Count/With Diff Urgent
01/16/25 13:18
Orthostatic VS- Treatment ONCE
0.9% Sodium Chloride 1000 ml [Nss] 1,000 ml IV BOLUS
01/16/25 13:31
Troponin I Urgent
01/16/25 15:18
Comprehensive Metabolic Panel Urgent
Abnormal Lab Results
01/16/25 01/16/25
12:51 15:18
Lymphocytes % 17.0 L %
(20.5-51.1)
Chloride 108 H mmol/L
(98-107)
Glucose 133 H mg/dl
(70-99)
Total Protein 5.5 L g/dl
(6.3-8.2)
01/16/25 12:51
01/16/25 15:18
Vital Signs
Initial and Last Documented VS:
Initial Vital Signs
BP
153/142
01/16/25 12:43
Last Documented Vital Signs
Temp Pulse Resp BP Pulse Ox
98.1 F 60 13 169/78 98
01/16/25 14:00 01/16/25 15:15 01/16/25 15:15 01/16/25 15:00 01/16/25 15:15
MDM/Problems Addressed
Differential Diagnosis Includes:
Not limited to: vasovagal near syncope, orthostatic hypotension, acute dehydration, cardiac arrythmia, etc
MDM/Problems Addressed:
84-year-old female presenting after near syncopal event while at [employer]. No known loss of consciousness. No proceeding chest pain, shortness of breath. Patient hypertensive on arrival although somewhat improved by my assessment. She has otherwise
stable vital signs. Physical exam as above.
Differential broad. Possibly vasovagal near syncope versus orthostasis vs dehydration. Less likely cardiac etiology. Do not suspect seizure. Will check labs, orthostatic vital signs, give IV fluids.
Initial EKG normal side rhythm with nonspecific ST changes unchanged from prior. Labs unremarkable, including negative troponin. No evidence of orthostatic hypotension. Patient did receive 1 liter of IV fluids.
Ultimately - work up in ED negative. Symptoms seem consistent with likely vasovagal near syncope. She is up and ambulating around department and does not feel lightheaded, dizzy. Do not feel admission indicated. Stable for discharge home with advice
to stay well hydrated, follow up with both primary care and cardiology. Very strict return precautions discussed. Patient comfortable with plan.
Chronic conditions affecting care:
HTN, DM
Acute Exacerbation and/or Progression of Chronic Illness:
N/A
*Pulse Oximetry
SaO2: 100
Oxygen Mode of Delivery: Room air
Patient hypoxic: no
*EKG
Interpreted by ED Provider?: Yes
EKG Intrepretation Date: 01/16/25
Interpretation: abnormal
Comparison EKG: changes noted
Heart Rate: 62
Rate: normal
Rhythm: sinus
Interval: first degree heart block
Ischemia: non-specific ST changes
*[facility] Interpretation
Rate: normal
Interpretation: normal
Heart Rate: 72
Rhythm: sinus
*Critical Care Note
Total Time (30-74mins, 75-104mins- exclusive of procedures): Not Applicable
ED Attending Note
-
Portions of this chart may have been created with voice recognition software.� Occasional wrong word or��sound alike� substitutions may have occurred due to the inherent limitations of voice recognition software.
Discharge Plan
Departure
Patient Disposition: Home (Routine Discharge)
Date of Disposition: 01/16/25
Time of Disposition: 16:15
Patient with high blood pressure during this ER visit?: Yes
Discharge Problem:
Near syncope
Instructions: Near Fainting (DC), BLOOD PRESSURE
Prescriptions:
No Action
aspirin 81 MG tablet,delayed release (DR/EC)
81 mg PO DAILY
sucralfate [Carafate] 1 gram tablet
1 g PO ACHS Qty: 40 0RF
Rx Instructions:
30min-1 hour before meals and HS
ezetimibe [Zetia] 10 mg Tablet
10 mg PO DAILY
pantoprazole [Protonix] 40 mg tablet,delayed release (DR/EC)
40 mg PO BID
atorvastatin 40 mg Tablet
40 mg PO QPM 30 Days Qty: 30 0RF
metoprolol tartrate 25 mg Tablet
25 mg PO BID 30 Days Qty: 60 0RF
clopidogrel 75 mg Tablet
75 mg PO DAILY 30 Days Qty: 30 0RF
Referrals:
Scar Rodriguez Jr., DO [Family Provider, Internal Medicine] - Follow up in 5-7 days
Lucy Werner MD [Active, Cardiology]
Activity Restrictions/Additional Instructions:
RETURN TO THE EMERGENCY DEPARTMENT WITH ANY CHEST PAIN, SHORTNESS OF BREATH, PERSISTENT DIZZINESS/LIGHTHEADEDNESS, UNSTEADINESS, EPISODES OF FAINTING, SIGNS OF SEVERE DEHYDRATION, WORSENING CURRENT SYMPTOMS, OR ANY OTHER CONCERNS
-As discussed-your lab work showed no acute abnormalities in the emergency department. You were given a liter of IV fluids. It is possible your symptoms were due to a vagal response or dehydration.
- Please stay well-hydrated. Continue to take your medications as prescribed.
- Follow-up with primary care and cardiology for further evaluation/management to ensure that your symptoms improve.
Monitor your symptoms closely and return to the emergency department with any acute worsening/new symptoms or any other concerns
Interventions
Interventions:
*Risk Screen - Suicide Last Done: 01/16/25 12:46
*General Assessment Last Done: 01/16/25 12:46
*Neglect/Abuse Screening Last Done: 01/16/25 12:46
*ED- Fall Risk Assessment Last Done: 01/16/25 12:46
*Nursing Disposition Last Done: 01/16/25 16:38
ED- Cardiac Assessment Last Done: 01/16/25 12:46
ED- Neurological Assessment Last Done: 01/16/25 12:46
Discharge Date and Time
Discharge Date/Time: 01/16/25 16:38
Print Language: IRISH
[2025-01-16] MEDS: NSS 1000 IV (13:30)
[2025-01-16 14:21] LABS: Troponin I < 0.012 ng/ml
[2025-01-16 15:45] LABS: ALT (SGPT) 21 U/L (0-35); AST (SGOT) 30 U/L (14-36); Albumin 3.6 g/dl (3.5-5.0); Alkaline Phosphatase 63 U/L (38-126); Blood Urea Nitrogen 17 mg/dl (7-17); Calcium 8.8 mg/dl (8.4-10.2); Carbon Dioxide 28 mmol/L (22-30); Chloride 108 mmol/L (98-107); Estimated Creatinine Clearance 45 ml/min; Glucose 133 mg/dl (70-99); Potassium 3.8 mmol/L (3.5-5.1); Sodium 138 mmol/L (135-145); Total Protein 5.5 g/dl (6.3-8.2); eGFR > 60.00
== END 2025-01-16 16:38 | disposition home or self-care (01) ==
LOC: EMR 12:43
PROVIDERS: EMERGENCY PHYSICIAN Emergency Medicine; FAMILY PHYSICIAN Family Medicine
DX: R55 Syncope and collapse (principal); I44.0 Atrioventricular block, first degree; I10 Essential (primary) hypertension; E11.40 Type 2 diabetes mellitus with diabetic neuropathy, unspecified; K21.9 Gastro-esophageal reflux disease without esophagitis; B02.9 Zoster without complications; M19.90 Unspecified osteoarthritis, unspecified site; E11.36 Type 2 diabetes mellitus with diabetic cataract; Z85.3 Personal history of malignant neoplasm of breast
CPT/HCPCS: 99284; 96360; 80053; 84484; 85025; 93005

== ENCOUNTER → 2025-01-31 10:16 | Outpatient (REF) | payer MEDICARE, SELFPAY ==
[2025-01-31 11:32] LABS: Hematocrit 42.6 % (37.0-47.0); Hemoglobin 14.5 g/dL (12.0-16.0); Mean Corp Hgb Conc. 34.0 g/dL (33.0-37.0); Mean Corpuscular Volume 90.3 fL (81.0-99.0); Nucleated Red Blood Cells % 0 %; Platelet Count 212 10^3/uL (130-400); Red Cell Dist. Width 12.5 % (11.5-14.5)
[2025-01-31 11:34] LABS: Microalb - Urine Creatinine 70.300 mg/dl
[2025-01-31 11:38] LABS: Microalbumin, Random Urine 5.2 mg/dl (0.6-1.7)
[2025-01-31 12:08] LABS: ALT (SGPT) 15 U/L (0-35); AST (SGOT) 18 U/L (14-36); Albumin 4.5 g/dl (3.5-5.0); Alkaline Phosphatase 72 U/L (38-126); Blood Urea Nitrogen 9 mg/dl (7-17); Calcium 9.7 mg/dl (8.4-10.2); Carbon Dioxide 30 mmol/L (22-30); Chloride 98 mmol/L (98-107); Glucose 120 mg/dl (70-99); HDL Cholesterol 65 mg/dl; LDL Cholesterol, Calculated 98 mg/dl; Potassium 4.8 mmol/L (3.5-5.1); Sodium 134 mmol/L (135-145); Total Protein 6.8 g/dl (6.3-8.2); Very Low Density Lipoprotein 32 mg/dl (0-30); eGFR > 60.00
[2025-01-31 12:17] LABS: Glycohemoglobin (HgbA1c) 6.6 % (4.0-5.6)
== END ==
LOC: REG 10:16
PROVIDERS: ATTENDING PHYSICIAN Family Medicine
DX: E11.40 Type 2 diabetes mellitus with diabetic neuropathy, unspecified (principal); R53.83 Other fatigue; E78.2 Mixed hyperlipidemia; Z13.29 Encounter for screening for other suspected endocrine disorder
CPT/HCPCS: 36415; 80053; 80061; 82043; 82570; 83036; 84443; 85025

== ENCOUNTER → 2025-04-19 10:20 | Outpatient (REF) | payer OTHER, SELFPAY | LOC: RAD 10:20 | PROVIDERS: ATTENDING PHYSICIAN Surgery Vascular Surgery; FAMILY PHYSICIAN Family Medicine | DX: I73.9 Peripheral vascular disease, unspecified (principal) | CPT/HCPCS: 93880 ==